=== PATIENT | male | born 1940 | race Caucasian/White ===

== ENCOUNTER 2024-07-11 13:13 | Observation (INO) | payer MEDICARE, SELFPAY ==
[2024-07-11] VITALS (22 sets, daily range): BP systolic 70–132; BP diastolic 42–68; PULSE 53–71; RESP 12–20; TEMP 36.2–36.4; O2SAT 88–100; BMI 23.3
--- NOTE | ~2024-07-11 | US_ITS ---
EXAMINATION: US renal BI DATE: 07/14/2024 08:55 INDICATION: Acute kidney injury. TECHNIQUE: Multiple ultrasound grayscale images of the kidneys were obtained. COMPARISON: None. FINDINGS: The right kidney measures 10.0 x 4.5 x 5.7 cm. The left kidney measures 11.6 x 5.1 x 5.3 cm. The kidn eys demonstrate normal parenchymal echogenicity. There is no hydronephrosis. The bladder is decompres sed by a Sharpe catheter. IMPRESSION: 1. Normal kidneys. No hydronephrosis. Reviewed, dictated and finalized at location A. OGICAL TECHNICIAN
--- NOTE | ~2024-07-11 | XR_ITS ---
CHEST RADIOGRAPH CLINICAL HISTORY: hypotension . COMPARISON: None available TECHNIQUE: Single portable view of the chest. FINDINGS Sternal wires and mediastinal clips are identified, the wires are midline and intact. The remainder of the cardiomediastinal silhouette is otherwise unremarkable. Increased interstitial markings within the right upper lobe for which an early infiltrate is suspecte d. The remainder of the lungs are clear. Visualized osseous structures and soft tissues are unremarkable. IMPRESSION: Early infiltrate within the right upper lobe suspected Otherwise, unremarkable evaluation of the chest, as detailed above. Reviewed, dictated and finalized at location A. CHARGER
--- NOTE | 2024-07-11 13:49 | ECG_ITS ---
Test Date: 2024-07-11 14:06:20 Measurements Intervals [place] Rate: 51 P: 37 NV: 171 QRS: 38 QRSD: 114 T: -1 QT: 462 QTc: 427 Interpretive Statements SINUS BRADYCARDIA possible old inferior [place] No previous ECG available for comparison Electronically Signed On 07-11-2024 14:42:46 FLIGHT STEWARD by Heather Espinoza M.D.
--- NOTE | 2024-07-11 13:50 | PC.NURSE ---
spoke with Araceli at [facility] to inquire that all bp medications were held today. states that patient didn't get any of his bp medications this morning. bp of patient on chart sent from facility was 06/29 and was 102/58 the nurse from facility stated that this has been his new normal since upping his lisinopril a couple of months ago
[2024-07-11] MEDS: LACTATED RINGERS 1,000 ML 999 ML IV CONT ×3 (13:58→13:59)
--- NOTE | 2024-07-11 14:36 | ED_ITS ---
HPI - Recheck/Abnormal Lab/Rx General Chief Complaint: Recheck/Abnormal Lab/Rx Stated Complaint: low BP Time Seen by Provider: 07/11/24 13:44 History of Present Illness HPI narrative: 84-year-old male presenting with hypotension. He resides at a nursing facility was found to have blood pressures in the 80s systolic so EMS was called. Patient denies any complaints though his family reports he has had diarrhea lately. Denies any pain or nausea. Related Data Allergies Allergy/AdvReac Type Severity Reaction Status Date / Time No Known Drug Allergies Allergy Unknown UNKNOWN Verified 07/11/24 13:56 Review of Systems 2 Review of Systems: All systems reviewed & are unremarkable except as noted in HPI and below PMFSH Past Medical History Medical History (Updated 07/11/24 @ 21:20 by Tsering Tafoya MD) Coronary artery disease Depression Vitamin D deficiency Dementia Hyperlipidemia Hypertension Surgical History Surgical History (Updated 07/11/24 @ 21:17 by Darcy Huerta PA-C) History of bilateral knee arthroplasty History of four vessel coronary artery bypass graft Family History Family History (Updated 07/11/24 @ 21:18 by Darcy Huerta PA-C) Other Family history unknown Social History Social History Social History: Healthcare power of software quality assurance engineer: Teressa Espinal, daughter. Code status: Full code. Additional living arrangements comments: Assisted living at [facility]. 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 Exam 2 Narrative: GENERAL: Elderly male sitting up in bed in no acute distress, pleasant and cooperative HEAD: Normocephalic, atraumatic. EYES: PERRLA and EOMI. ENT: grossly unremarkable NECK: Supple. CHEST: Clear to auscultation. No respiratory distress. HEART: Regular rate and rhythm ABDOMEN: Soft, nontender, nondistended EXTREMITIES: No edema. SKIN: Warm, dry, no rash. NEURO: No focal deficits. Alert and oriented x3. PSYCH: Normal mood and affect. Course Vital Signs Vital signs: Vital Signs Temperature 97.6 F 07/11/24 13:12 Pulse Rate 55 L 07/11/24 13:12 Respiratory Rate 18 07/11/24 13:12 Blood Pressure 70/42 L 07/11/24 13:12 Pulse Oximetry 96 07/11/24 13:12 Oxygen Delivery Room Air 07/11/24 13:12 Temperature 97.6 F 07/11/24 13:12 Pulse Rate 64 07/11/24 17:50 Respiratory Rate 13 07/11/24 17:50 Blood Pressure 113/68 07/11/24 17:46 Pulse Oximetry 99 07/11/24 17:46 Oxygen Delivery Room Air 07/11/24 13:12 MDM - Recheck/Abnormal Lab/Rx MDM Narrative Medical decision making narrative: 84-year-old male presenting with low blood pressure. Blood pressures on arrival are 70-80 systolic. Patient bradycardic, otherwise vitals within normal limits. blood work is concerning for SHIRLENE with a creatinine of 3.6, BUN of 106. Lactic acid is normal. Troponins undetectable. UA is not infected. IV fluids are ongoing. Patient continues to deny any complaints. He requires admission for further management which he is agreeable with. his pressures have improved following IV hydration. I spoke with the hospitalist who has accepted him for admission. Differential Diagnosis Differential diagnosis: Likely other ( Hypotension, SHIRLENE, electrolyte derangement) Medical Records Attestation: I reviewed the patient's medical records. Lab Data 07/11/24 14:52 07/11/24 16:46 Labs: Lab Results 07/11/24 07/11/24 07/11/24 Range/Units 14:52 16:46 17:10 WBC 5.2 (4.5-10.0) K/mm3 RBC 3.62 L (4.6-6.20) M/mm3 Hgb 10.9 L (14.0-18.0) g/dL Hct 33.7 L (42.0-52.0) % MCV 93.1 (80-100) fl MCH 30.1 (26-34) pg MCHC 32.3 (32-36) g/dl RDW 13.1 (11.5-14.5) % Plt Count 179 (150-375) k/mm3 MPV 10.8 H (7.4-10.4) fl Immature Gran % (Auto) 0.6 H (0-0.5) % Neut % (Auto) 57.7 (45.5-73.1) % Lymph % (Auto) 26.4 (18.3-44.2) % Lea % (Auto) 12.2 H (2.6-8.5) % Eos % (Auto) 2.3 (0-4.4) % Baso % (Auto) 0.8 (0.2-1.2) % Lymph # (Auto) 1.38 (0.9-3.2) K/mm3 Lea # (Auto) 0.6 (0.1-0.6) K/mm3 Eos # (Auto) 0.1 (0-0.3) K/mm3 Baso # (Auto) 0.0 (0.0-0.1) K/mm3 Abs Immat Gran (auto) 0.03 (0.00-0.031) K/mm3 Absolute Neuts (auto) 3.0 (1.3-6.7) K/mm3 Absolute Nucleated RBC 0.000 (0.0-0.012) K/mm3 Nucleated RBC % 0.0 (0.0-0.2) % PT 14.7 (11.1-14.7) Seconds INR 1.1 APTT 27.4 (22.3-36.8) Seconds Sodium 137 136 L (137-145) mmol/L Potassium 5.1 H 4.9 (3.4-5.0) mmol/L Chloride 115 H 116 H (98-107) mmol/L Carbon Dioxide 15 L 14 L (22-30) mmol/L Anion Gap 7 6 (4-12) mmol/L BUN 109 H 106 H (9-20) mg/dL Creatinine 3.90 H 3.60 H (0.7-1.3) mg/dL Estim Creat Clear Calc 14 16 ml/min Estimated GFR 15 L 16 L (59 - ) Glucose 128 H 116 H (65-110) mg/dL Lactic Acid 1.4 (0.7-2.0) mmol/L Calcium 8.0 L 8.0 L (8.4-10.2) mg/dL Magnesium 2.1 (1.6-2.3) mg/dL Total Bilirubin 0.5 (0.2-1.3) mg/dL AST 14 L (17-59) U/L ALT 12 (6-50) U/L Alkaline Phosphatase 78 (38-126) U/L Total Creatine Kinase 27 L (55-170) U/L Troponin I < 0.012 < 0.012 (0.000-0.034) ng/mL NT-Pro-B Natriuret Pep 303 H (19.9-100) pg/mL Total Protein 6.0 L (6.3-8.2) g/dL Albumin 3.2 L (3.5-5.1) g/dL Lipase 469 H (23-300) U/L Urine Color Yellow (Yellow) Urine Appearance Clear (Clear) Urine pH 5.0 (5.0-9.0) Ur Specific [place] 1.013 (1.001-1.035) Urine Protein Trace (Negative) mg/dL Urine Glucose (UA) Negative (Negative) mg/dL Urine Ketones Negative (Negative) mg/dL Ur Blood (Man) Negative (Negative) Urine Nitrate Negative (Negative) Urine Bilirubin Negative (Negative) Urine Urobilinogen 0.2 (<2.0) mg/dL Add Ur Microanalysis Reviewed Leukocyte Esterase Rfl Negative (Negative) CRYSTAL/UL Urine RBC 0-2 (0-2) /hpf Urine WBC 0-5 (0-3) /hpf Ur Squamous Epith Cells None seen (Few) /hpf Urine Bacteria None seen /hpf Urine Casts 6-10 Hyaline Casts Present (None) /lpf Influenza A (RT-PCR) Negative (Negative) Influenza B (RT-PCR) Negative (Negative) RSV (RT-PCR) Negative (Negative) SARS-CoV-2 RNA (RT-PCR) Negative (Negative) ABG Data ABG results: 07/11/24 16:58 VBG pH 7.204 L* VBG pCO2 36.3 L VBG pO2 < 27.0 L VBG HCO3 14.0 L O2 Delivery Device Not Reportable O2 Liters/Min Not Reportable FiO2 21 Imaging Data Radiologist's impression: ITS Impressions Chest X-Ray 07/11/24 14:40 IMPRESSION: Early infiltrate within the right upper lobe suspected Otherwise, unremarkable evaluation of the chest, as detailed above. Critical Care Time Critical Care Time Critical Care Time: Yes Total Critical Care Time: 32 Discharge Plan Discharge Clinical Impression: Hypotension, Acute kidney injury, Dementia Patient Disposition: Still a Patient Condition: Stable Patient Language: [place] Follow-up/Referrals: UNKNOWN,DOCTOR [Primary Care Provider] -
[2024-07-11 15:04] LABS: Basophils Percent Auto 0.8 % (0.2-1.2); Eosinophils Absolute Auto 0.1 K/mm3 (0-0.3); Eosinophils Percent Auto 2.3 % (0-4.4); Hematocrit 33.7 % (42.0-52.0); Hemoglobin 10.9 g/dL (14.0-18.0); Immature Granulocyte Absolute 0.03 K/mm3 (0.00-0.031); Immature Granulocyte Percent A 0.6 % (0-0.5); Lymphocytes Absolute Auto 1.38 K/mm3 (0.9-3.2); Lymphocytes Percent Auto 26.4 % (18.3-44.2); Mean Corpuscular HGB Conc 32.3 g/dl (32-36); Mean Corpuscular Hemoglobin 30.1 pg (26-34); Mean Corpuscular Volume 93.1 fl (80-100); Mean Platelet Volume 10.8 fl (7.4-10.4); Monocytes Absolute Auto 0.6 K/mm3 (0.1-0.6); Monocytes Percent Auto 12.2 % (2.6-8.5); Neutrophils Percent Auto 57.7 % (45.5-73.1); Platelet Count Result 179 k/mm3 (150-375); Red Blood Count 3.62 M/mm3 (4.6-6.20); Red Cell Distribution Width 13.1 % (11.5-14.5); White Blood Count 5.2 K/mm3 (4.5-10.0)
[2024-07-11 15:15] LABS: Alanine Aminotransferase 12 U/L (6-50); Albumin Level 3.2 g/dL (3.5-5.1); Alkaline Phosphatase 78 U/L (38-126); Anion Gap 7 mmol/L (4-12); Aspartate Amino Transferase 14 U/L (17-59); Bilirubin,Total 0.5 mg/dL (0.2-1.3); Blood Urea Nitrogen 109 mg/dL (9-20); Carbon Dioxide 15 mmol/L (22-30); Chloride 115 mmol/L (98-107); Estimated CRCL calculation 14 ml/min; Estimated Glomerular Filt Rate 15; Glucose 128 mg/dL (65-110); Lactic Acid Reflex 1.4 mmol/L (0.7-2.0); Lipase 469 U/L (23-300); Magnesium 2.1 mg/dL (1.6-2.3); Potassium 5.1 mmol/L (3.4-5.0); Sodium 137 mmol/L (137-145)
[2024-07-11 15:17] LABS: INR 1.1; Prothrombin Time 14.7 Seconds (11.1-14.7)
[2024-07-11 15:18] LABS: Partial Thromboplastin Time 27.4 Seconds (22.3-36.8)
[2024-07-11 15:26] LABS: NT Pro B Type Natriuretic Pept 303 pg/mL (19.9-100); Troponin I < 0.012 ng/mL (0.000-0.034)
[2024-07-11 15:38] LABS: Influenza A QL RT-PCR Negative (Negative); Influenza B QL RT-PCR Negative (Negative); RSV RNA, RT-PCR Negative (Negative); SARS-CoV-2 RNA PCR Negative (Negative)
--- NOTE | 2024-07-11 16:10 | P.HP_ITS ---
H&P: HPI History of Present Illness Date/Time: 07/11/24 16:10 Chief Complaint: Hypotension. Narrative: This is an 84-year-old male with dementia, coronary artery disease, hypertension, hyperlipidemia, and depression who presented to the emergency department via EMS from [facility] for evaluation of hypotension. He is not the best historian given his underlying dementia and some of the following is obtained via a review of his electronic medical record as well as information provided by his daughter; also suffers from dementia. It is my understanding that the patient's blood pressure was in the low 100s systolic this morning and lisinopril was held. Blood pressure at lunch was in the 70s to 80s systolic and he was sent to the ED.. It is my understanding that the patient and his both had a GI bug over the weekend, mainly with diarrhea. The patient also ran a temperature for a couple of days but that has since resolved. At the time of my evaluation he tells me he feels just fine and has no complaints. He denies headache, sinus congestion, sore throat, cough, nausea, vomiting, current diarrhea, and dysuria. He also denies chest pain, pleuritic pain, orthopnea, paroxysmal nocturnal dyspnea, shortness of breath, and edema. In the ED: Blood pressure was 70/42 on arrival. He has been in a sinus rhythm and is afebrile. Labs are significant for WBC count of 5.2, hemoglobin 10.9, potassium 5.1, chloride 115, carbon dioxide 15, anion gap 7, BUN 109, creatinine 3.90, glucose 128, lactic acid 1.4, troponin <0.012, proBNP 303, total protein 6.0, albumin 3.2, lipase 469. Influenza, RSV, and COVID were negative. Chest x- ray showed a suspected early infiltrate within the right upper lobe. He received 3 L crystalloid bolus with improvement his blood pressures and he is being admitted in this setting. Review of Systems Review of Systems: 12 systems were reviewed and are negativ e except for as per HPI. [facility] Past Medical History Medical History (Updated 07/11/24 @ 21:24 by Darcy Huerta PA-C) Coronary artery disease Depression Vitamin D deficiency Dementia Hyperlipidemia Hypertension Surgical History Surgical History (Updated 07/11/24 @ 21:17 by Darcy Huerta PA-C) History of bilateral knee arthroplasty History of four vessel coronary artery bypass graft Family History Family History (Updated 07/11/24 @ 21:18 by Darcy Huerta PA-C) Other Family history unknown Social History Social History (Updated 07/11/24 @ 21:19 by Darcy Huerta PA-C) Social History: Healthcare power of employee benefits attorney: Teressa Espinal, daughter. Code status: Full code. Additional living arrangements comments: Assisted living at [facility]. 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 Meds Home Medications and Allergies Allergies Allergy/AdvReac Type Severity Reaction Status Date / Time No Known Drug Allergies Allergy Unknown UNKNOWN Verified 07/11/24 13:56 Vital Signs Vital Signs - 24 hr 07/11/24 13:12 07/11/24 13:38 Temperature 97.6 F Pulse Rate 55 L 53 L Respiratory Rate 18 18 Blood Pressure 70/42 L 81/58 L Pulse Oximetry 96 100 Oxygen Delivery Room Air Exam Narrative: General: Nontoxic-appearing elderly gentleman the semi-Arenas position in bed. Weight: 77.8 kg. BMI: 23.9. HEENT: PERRL, EOMI. Sclera anicteric. Tacky mucous membranes. Neck: Supple. Full smith. Respiratory: Respirations are nonlabored and lungs are clear to auscultation. Cardiovascular: Regular rate and rhythm with S1-S2. Gastrointestinal: Abdomen is soft, nontender, and nondistended with positive bowel sounds. No guarding or rebound tenderness. Skin: Warm and dry. Normal capillary refill. Extremities: No cyanosis, clubbing, or edema. Radial and pedal pulses intact. Neurological: Alert. Cranial nerves 2-12 are grossly intact. Speech is clear. No facial asymmetry. No gross focal deficits to casual conversation. Psychiatric: Pleasant and cooperative with appropriate mood and affect. He has a good spirits. Seems to be a bit forgetful. H&P: Results Labs Labs: Short CBC 07/11/24 Range/Units 14:52 WBC 5.2 (4.5-10.0) K/mm3 Hgb 10.9 L (14.0-18.0) g/dL Hct 33.7 L (42.0-52.0) % Plt Count 179 (150-375) k/mm3 BMP 12/24/24 14:52 Sodium 137 Potassium 5.1 H Chloride 115 H Carbon Dioxide 15 L BUN 109 H Creatinine 3.90 H Glucose 128 H Calcium 8.0 L Cardiac Enzymes 07/11/24 Range/Units 14:52 Troponin I < 0.012 (0.000-0.034) ng/mL Liver Function 07/11/24 Range/Units 14:52 Total Bilirubin 0.5 (0.2-1.3) mg/dL AST 14 L (17-59) U/L ALT 12 (6-50) U/L Alkaline Phosphatase 78 (38-126) U/L Albumin 3.2 L (3.5-5.1) g/dL Imaging Chest X-Ray 07/11/24 14:40 IMPRESSION: Early infiltrate within the right upper lobe suspected Otherwise, unremarkable evaluation of the chest, as detailed above. Assessment and Plan Assessment and plan (1) Hypotension: Code(s): I95.9 - Hypotension, unspecified Status: Acute (2) Acute kidney injury: Code(s): N17.9 - Acute kidney failure, unspecified Status: Acute (3) Metabolic acidosis: Code(s): E87.20 - Acidosis, unspecified Status: Acute (4) Dementia: Code(s): F03.90 - Unspecified dementia, unspecified severity, without behavioral disturbance, psychotic disturbance, mood disturbance, and anxiety Status: Acute Plan The patient presented to the emergency department for evaluation of low blood pressure as detailed in HPI. Labs, imaging, EKG, and all reports were personally reviewed. He apparently had diarrhea for several days over the weekend which has reportedly resolved. I suspect that he is dehydrated due to volume loss which is responsible for the hypotension and presumed acute kidney injury. He and his moved to the area about a year ago and he has never been seen at this facility; will attempt to get records from his primary care provider in [place], [place]. I have yet to see a list of his medications to see whether not he is on nephrotoxic agents. Sharpe catheter was inserted in immediately drained about 500 mL of urine and we will continue to monitor strict I/O. Renal ultrasound has been ordered. Metabolic acidosis is likely related to the renal failure. We will continue with IV fluid rehydration overnight and continue to monitor renal function. His home medications will be reviewed and resumed as appropriate. Findings and treatment plan were discussed with the patient. Questions were solicited and answered to satisfaction. The patient's medical management will be taken over by the hospitalist team in a.m. Quality VTE Prophylaxis VTE prophylaxis: mechanical ordered and pharmacologic ordered Hospitalist [facility] Advance Care Plan I have confirmed that the patient's Advanced Care Plan is present, code status is documented, or surrogate decision maker is listed in patient medical record.: Yes Medication Reconciliation I have utilized all available resources to obtain, update and review the patients current medications (includes all prescriptions, OTC, herbals, cannabis, and nutritional supplements).: Yes
[2024-07-11 17:02] LABS: Anion Gap 6 mmol/L (4-12); Blood Urea Nitrogen 106 mg/dL (9-20); Carbon Dioxide 14 mmol/L (22-30); Chloride 116 mmol/L (98-107); Estimated CRCL calculation 16 ml/min; Estimated Glomerular Filt Rate 16; Glucose 116 mg/dL (65-110); Potassium 4.9 mmol/L (3.4-5.0); Sodium 136 mmol/L (137-145)
[2024-07-11 17:14] LABS: Troponin I < 0.012 ng/mL (0.000-0.034)
[2024-07-11 17:21] LABS: Fractional Inspired Oxygen 21 %; PCO2 VBG 36.3 mmHg (42.0-48.0)
[2024-07-11 17:24] LABS: PO2 VBG < 27.0 mmHg (35.0-45.0); pH VBG 7.204 (7.300-7.400)
[2024-07-11 17:35] LABS: Add Urine Microscopic? YES; Appearance Urine Clear (Clear); Bacteria Urine None Seen /hpf; Bilirubin Urine Negative (Negative); Blood Urine Negative (Negative); Color Urine Yellow (Yellow); Glucose Urine UA Negative (Negative); Hyaline Casts Urine Present /lpf; Ketones Urine Negative (Negative); Leukocyte Esterase Ur Negative LEU/UL (Negative); Need Manual Microscopic Reviewed; Nitrate Urine Negative (Negative); Protein Urine Trace mg/dL (Negative); RBC Urine 0-2 /hpf (0-2); Specific Grav Ur 1.013 (1.001-1.035); Squamous Epithelial Cell Urine None Seen /hpf (Few); Urobilinogen Urine 0.2 mg/dL (<2.0); WBC Urine 0-5 /hpf (0-3)
[2024-07-11 17:54] LABS: Creatine Kinase 27 U/L (55-170)
--- NOTE | 2024-07-11 20:28 | PC.NURSE ---
RN WAS CALLED TO THE PATIENTS ROOM BY PATIENTS ROOM NEIGHBOR. STATING THAT THE PATIENT NEEDED HELP. PATIENT WAS FOUND TO BE STANDING AT THE BOTTOM OF THE BED WITH STOOL ON THE BED, FLOOR, PATIENT, AND PATIENTS CLOTHING. PATIENT HAD PULLED OUT HIS IV, WHEN ASKING WHAT HAPPENED THE PATIENT STATED I REALLY DON'T KNOW, WAKE ME UP IN THE MORNING I'M IN A NIGHTMARE. PATIENT CLEANED UP, AND HELPED TO THE BEDSIDE COMMODE. PATIENT TRIED TO PULL VILLAR CATHETER OUT AND PULLED THE STATLOCK APART WHILE HOLDING CATHETER TUBING IN HIS HANDS.
[2024-07-11 22:29] LABS: Troponin I < 0.012 ng/mL (0.000-0.034)
--- NOTE | 2024-07-11 22:44 | ADMGEN ---
This patient, Tung Rodriguez, was admitted to [facility] Surg Room 303-01. Patient/family oriented to hospital policies and general routines including ID bracelet, bed and alarms, visiting hours, pain management, procedures, bathroom and other care routines, personal items, smoking policy, room service/diet, and visiting hours. Information on how to activate the Rapid Response Team has been discussed. Patient/Family are encouraged to report perceived risks to care and to ask questions if they do not understand what they are told or what they should do.
[2024-07-12] VITALS: PULSE 65
[2024-07-12 01:20] LABS: Toxigenic C. Diff NEGATIVE (NEGATIVE)
[2024-07-12] MEDS: LACTATED RINGERS 1,000 ML 100 ML IV CONT ×2 (02:18→16:32)
[2024-07-12] MEDS: LORazepam INJ (*CRX) 2 MG/ML VIAL 1 MG IV PUSH (02:18)
[2024-07-12 06:00] VITALS: BP 129/89
[2024-07-12 06:32] LABS: Hematocrit 34.4 % (42.0-52.0); Hemoglobin 11.3 g/dL (14.0-18.0); Mean Corpuscular HGB Conc 32.8 g/dl (32-36); Mean Corpuscular Hemoglobin 30.3 pg (26-34); Mean Corpuscular Volume 92.2 fl (80-100); Mean Platelet Volume 11.2 fl (7.4-10.4); Platelet Count Result 190 k/mm3 (150-375); Red Blood Count 3.73 M/mm3 (4.6-6.20); White Blood Count 6.9 K/mm3 (4.5-10.0)
[2024-07-12 06:49] LABS: Anion Gap 7 mmol/L (4-12); Blood Urea Nitrogen 92 mg/dL (9-20); Calcium 8.5 mg/dL (8.4-10.2); Carbon Dioxide 15 mmol/L (22-30); Chloride 118 mmol/L (98-107); Estimated CRCL calculation 18 ml/min; Estimated Glomerular Filt Rate 19; Glucose 104 mg/dL (65-110); Magnesium 2.1 mg/dL (1.6-2.3); Potassium 5.3 mmol/L (3.4-5.0); Sodium 140 mmol/L (137-145)
[2024-07-12] MEDS: levoFLOXacin 750 MG/D5W 150 ML 750 MG/150 ML BAG 100 MG IVPB (08:44)
[2024-07-12] MEDS: HEPARIN SODIUM 5,000 UNITS/ML VIAL 5000 UNITS SUB-Q ×2 (08:46→21:27)
[2024-07-12 08:47] VITALS: PULSE 63
[2024-07-12] MEDS: carvediloL 12.5 MG TABLET PO (08:47)
[2024-07-12] MEDS: VITAMIN E 1,000 UNIT CAPSULE 1000 UNIT PO (08:48)
[2024-07-12] MEDS: CHOLECALCIFEROL 1,000 UNITS TABLET 1000 UNITS PO (08:48)
[2024-07-12] MEDS: MEMANTINE 10 MG TABLET PO ×2 (08:48→21:27)
--- NOTE | 2024-07-12 11:05 | P.PNIM_ITS ---
Progress Note: A&P Assessment and Plan (1) Hypotension: Code(s): I95.9 - Hypotension, unspecified Status: Acute (2) Acute kidney injury: Code(s): N17.9 - Acute kidney failure, unspecified Status: Acute (3) Metabolic acidosis: Code(s): E87.20 - Acidosis, unspecified Status: Acute (4) Dementia: Code(s): F03.90 - Unspecified dementia, unspecified severity, without behavioral disturbance, psychotic disturbance, mood disturbance, and anxiety Status: Acute Plan Hypotension likely from Diarrhea resolved continue IVF and encourage PO intake Pneumonia CXR showed early RUP infiltrates blood culture pending patient started on Levaquin SHIRLENE, improving from dehydration and hypotension Continue IVF monitor Dementia Patient is A and Ox1 monitor DVT prophylaxis on Sq Heparin Subjective Date/time seen: 07/12/24 11:05 Interval history: Patient comfortable at bedside CXR showed pneumonia and patient started on Levaquin Review of Systems Review of Systems: 12 systems were reviewed and are negativ e except for as per HPI. Exam Narrative: General: Nontoxic-appearing elderly gentleman the semi-Arenas position in bed. Weight: 77.8 kg. BMI: 23.9. HEENT: PERRL, EOMI. Sclera anicteric. Tacky mucous membranes. Neck: Supple. Full smith. Respiratory: Respirations are nonlabored and lungs are clear to auscultation. Cardiovascular: Regular rate and rhythm with S1-S2. Gastrointestinal: Abdomen is soft, nontender, and nondistended with positive bowel sounds. No guarding or rebound tenderness. Skin: Warm and dry. Normal capillary refill. Extremities: No cyanosis, clubbing, or edema. Radial and pedal pulses intact. Neurological: Alert. Cranial nerves 2-12 are grossly intact. Speech is clear. No facial asymmetry. No gross focal deficits to casual conversation. Psychiatric: Pleasant and cooperative with appropriate mood and affect. He has a good spirits. Seems to be a bit forgetful. Objective Data Vital Signs Vital Signs: Vital Signs - 24 hr 07/11/24 13:12 07/11/24 13:38 07/11/24 14:08 Temperature 97.6 F Pulse Rate 55 L 53 L 57 L Respiratory Rate 18 18 15 Blood Pressure 70/42 L 81/58 L Pulse Oximetry 96 100 98 Oxygen Delivery Room Air 07/11/24 14:15 07/11/24 14:16 07/11/24 15:04 Temperature Pulse Rate 54 L 54 L 59 L Respiratory Rate 14 12 15 Blood Pressure 104/64 Pulse Oximetry 88 L 89 L Oxygen Delivery 07/11/24 15:15 07/11/24 15:16 07/11/24 15:30 Temperature Pulse Rate 62 59 L 61 Respiratory Rate 16 16 17 Blood Pressure 129/60 Pulse Oximetry 100 100 Oxygen Delivery 07/11/24 15:31 07/11/24 15:50 07/11/24 16:00 Temperature Pulse Rate 60 61 62 Respiratory Rate 17 15 16 Blood Pressure 128/55 L Pulse Oximetry 96 Oxygen Delivery 07/11/24 16:01 07/11/24 16:02 07/11/24 16:21 Temperature Pulse Rate 62 63 62 Respiratory Rate 17 17 18 Blood Pressure 122/65 Pulse Oximetry Oxygen Delivery 07/11/24 16:30 07/11/24 16:31 07/11/24 16:45 Temperature Pulse Rate 71 64 57 L Respiratory Rate 20 17 17 Blood Pressure 128/60 Pulse Oximetry Oxygen Delivery 07/11/24 17:23 07/11/24 17:46 07/11/24 17:50 Temperature Pulse Rate 62 64 64 Respiratory Rate 14 15 13 Blood Pressure 113/68 Pulse Oximetry 99 Oxygen Delivery 07/11/24 21:45 07/11/24 21:50 07/12/24 00:00 Temperature 97.1 F L Pulse Rate 70 65 Respiratory Rate 17 Blood Pressure 132/56 L Pulse Oximetry 97 Oxygen Delivery Room Air 07/12/24 06:00 07/12/24 08:00 07/12/24 08:47 Temperature Pulse Rate 63 Respiratory Rate Blood Pressure 129/89 Pulse Oximetry Oxygen Delivery Room Air Intake/Output Intake/Output: Intake & Output 07/09/24 07/10/24 07/11/24 07/12/24 23:59 23:59 23:59 23:59 Intake Total 3000 463.3 Output Total 1300 Balance 3000 -836.7 Meds/Results Medications: Active Medications Generic Name Dose Route Start Last Admin Trade Name Freq PRN Reason Stop Dose Admin Acetaminophen 650 mg 07/11/24 21:26 Acetaminophen 325 Mg Tablet PO Q6H PRN Mild Pain (1-3) or Fever Carvedilol 12.5 mg 07/12/24 09:00 07/12/24 08:47 Carvedilol 12.5 Mg Tablet PO 12.5 mg DAILY KENNA Administration Carvedilol 25 mg 07/12/24 21:00 Carvedilol 25 Mg Tablet PO HS KENNA Donepezil HCl 10 mg 07/12/24 21:00 Donepezil Hcl 10 Mg Tablet PO HS KENNA Fluoxetine HCl 20 mg 07/12/24 21:00 Fluoxetine Hcl 20 Mg Capsule PO HS KENNA Heparin Sodium (Porcine) 5,000 units 07/12/24 09:00 07/12/24 08:46 Heparin Sodium 5,000 Units/Ml Vial SUB-Q 5,000 units Q12HR KENNA Administration Lactated Ringer's 1,000 mls @ 100 mls/hr 07/11/24 21:30 07/12/24 10:15 Lr - Lactated Ringers Iv IV CONT 100 mls/hr .Q10H KENNA Infusion Levofloxacin/Dextrose 750 mg in 150 mls @ 100 mls/hr 07/14/24 09:00 Levaquin 500 Mg/D5w 100 Ml IVPB Q48HR KENNA Memantine 10 mg 07/12/24 09:00 07/12/24 08:48 Memantine 10 Mg Tablet PO 10 mg Q12HR KENNA Administration Simvastatin 40 mg 07/12/24 21:00 Simvastatin 20 Mg Tablet PO HS KENNA Vitamin D 1,000 units 07/12/24 09:00 07/12/24 08:48 Cholecalciferol 1,000 Units Tablet PO 1,000 units DAILY KENNA Administration Vitamin E 1,000 unit 07/12/24 09:00 07/12/24 08:48 Vitamin E 1,000 Unit Capsule PO 1,000 unit QAM KENNA Administration Radiology Results: ITS Impressions Chest X-Ray 07/11/24 14:40 IMPRESSION: Early infiltrate within the right upper lobe suspected Otherwise, unremarkable evaluation of the chest, as detailed above. Labs Labs: Laboratory Results - last 24 hr 07/11/24 07/11/24 07/11/24 14:52 16:46 16:58 WBC 5.2 RBC 3.62 L Hgb 10.9 L Hct 33.7 L MCV 93.1 MCH 30.1 MCHC 32.3 RDW 13.1 Plt Count 179 MPV 10.8 H Immature Gran % (Auto) 0.6 H Neut % (Auto) 57.7 Lymph % (Auto) 26.4 [place] % (Auto) 12.2 H Eos % (Auto) 2.3 Baso % (Auto) 0.8 Lymph # (Auto) 1.38 [place] # (Auto) 0.6 Eos # (Auto) 0.1 Baso # (Auto) 0.0 Abs Immat Gran (auto) 0.03 Absolute Neuts (auto) 3.0 Absolute Nucleated RBC 0.000 Nucleated RBC % 0.0 PT 14.7 INR 1.1 APTT 27.4 VBG pH 7.204 L* VBG pCO2 36.3 L VBG pO2 < 27.0 L VBG HCO3 14.0 L O2 Delivery Device Not Reportable O2 Liters/Min Not Reportable FiO2 21 Sodium 137 136 L Potassium 5.1 H 4.9 Chloride 115 H 116 H Carbon Dioxide 15 L 14 L Anion Gap 7 6 BUN 109 H 106 H Creatinine 3.90 H 3.60 H Estim Creat Clear Calc 14 16 Estimated GFR 15 L 16 L Glucose 128 H 116 H Lactic Acid 1.4 Calcium 8.0 L 8.0 L Magnesium 2.1 Total Bilirubin 0.5 AST 14 L ALT 12 Alkaline Phosphatase 78 Total Creatine Kinase 27 L Troponin I < 0.012 < 0.012 NT-Pro-B Natriuret Pep 303 H Total Protein 6.0 L Albumin 3.2 L Lipase 469 H Urine Color Urine Appearance Urine pH Ur Specific [place] Urine Protein Urine Glucose (UA) Urine Ketones Ur Blood (Man) Urine Nitrate Urine Bilirubin Urine Urobilinogen Add Ur Microanalysis Leukocyte Esterase Rfl Urine RBC Urine WBC Ur Squamous Epith Cells Urine Bacteria Urine Casts Hyaline Casts C. difficile (PCR) Influenza A (RT-PCR) Negative Influenza B (RT-PCR) Negative RSV (RT-PCR) Negative SARS-CoV-2 RNA (RT-PCR) Negative 07/11/24 07/11/24 07/12/24 17:10 21:55 00:24 WBC RBC Hgb Hct MCV MCH MCHC RDW Plt Count MPV Immature Gran % (Auto) Neut % (Auto) Lymph % (Auto) [place] % (Auto) Eos % (Auto) Baso % (Auto) Lymph # (Auto) [place] # (Auto) Eos # (Auto) Baso # (Auto) Abs Immat Gran (auto) Absolute Neuts (auto) Absolute Nucleated RBC Nucleated RBC % PT INR APTT VBG pH VBG pCO2 VBG pO2 VBG HCO3 O2 Delivery Device O2 Liters/Min FiO2 Sodium Potassium Chloride Carbon Dioxide Anion Gap BUN Creatinine Estim Creat Clear Calc Estimated GFR Glucose Lactic Acid Calcium Magnesium Total Bilirubin AST ALT Alkaline Phosphatase Total Creatine Kinase Troponin I < 0.012 NT-Pro-B Natriuret Pep Total Protein Albumin Lipase Urine Color Yellow Urine Appearance Clear Urine pH 5.0 Ur Specific [place] 1.013 Urine Protein Trace Urine Glucose (UA) Negative Urine Ketones Negative Ur Blood (Man) Negative Urine Nitrate Negative Urine Bilirubin Negative Urine Urobilinogen 0.2 Add Ur Microanalysis Reviewed Leukocyte Esterase Rfl Negative Urine RBC 0-2 Urine WBC 0-5 Ur Squamous Epith Cells None seen Urine Bacteria None seen Urine Casts 6-10 Hyaline Casts Present C. difficile (PCR) Negative Influenza A (RT-PCR) Influenza B (RT-PCR) RSV (RT-PCR) SARS-CoV-2 RNA (RT-PCR) 07/12/24 06:08 WBC 6.9 RBC 3.73 L Hgb 11.3 L Hct 34.4 L MCV 92.2 MCH 30.3 MCHC 32.8 RDW 13.0 Plt Count 190 MPV 11.2 H Immature Gran % (Auto) Neut % (Auto) Lymph % (Auto) [place] % (Auto) Eos % (Auto) Baso % (Auto) Lymph # (Auto) [place] # (Auto) Eos # (Auto) Baso # (Auto) Abs Immat Gran (auto) Absolute Neuts (auto) Absolute Nucleated RBC Nucleated RBC % PT INR APTT VBG pH VBG pCO2 VBG pO2 VBG HCO3 O2 Delivery Device O2 Liters/Min FiO2 Sodium 140 Potassium 5.3 H Chloride 118 H Carbon Dioxide 15 L Anion Gap 7 BUN 92 H D Creatinine 3.20 H Estim Creat Clear Calc 18 Estimated GFR 19 L Glucose 104 Lactic Acid Calcium 8.5 Magnesium 2.1 Total Bilirubin AST ALT Alkaline Phosphatase Total Creatine Kinase Troponin I NT-Pro-B Natriuret Pep Total Protein Albumin Lipase Urine Color Urine Appearance Urine pH Ur Specific [place] Urine Protein Urine Glucose (UA) Urine Ketones Ur Blood (Man) Urine Nitrate Urine Bilirubin Urine Urobilinogen Add Ur Microanalysis Leukocyte Esterase Rfl Urine RBC Urine WBC Ur Squamous Epith Cells Urine Bacteria Urine Casts Hyaline Casts C. difficile (PCR) Influenza A (RT-PCR) Influenza B (RT-PCR) RSV (RT-PCR) SARS-CoV-2 RNA (RT-PCR) Quality VTE Prophylaxis VTE prophylaxis: mechanical ordered and pharmacologic ordered
[2024-07-12 14:00] VITALS: BP 121/56; PULSE 75; RESP 18; TEMP 36.3; O2SAT 98
[2024-07-12 20:25] VITALS: BP 139/59; PULSE 75; RESP 20; TEMP 36.4; O2SAT 98
[2024-07-12] MEDS: DONEPEZIL HCL 10 MG TABLET PO (21:27)
[2024-07-12] MEDS: carvediloL 25 MG TABLET PO (21:27)
[2024-07-12] MEDS: FLUoxetine HCL 20 MG CAPSULE PO (21:28)
[2024-07-12] MEDS: SIMVASTATIN 20 MG TABLET 40 MG PO (21:29)
[2024-07-13 04:56] VITALS: BP 97/47; PULSE 70; RESP 20; TEMP 36.2; O2SAT 96
[2024-07-13 09:06] VITALS: PULSE 70
[2024-07-13] MEDS: HEPARIN SODIUM 5,000 UNITS/ML VIAL 5000 UNITS SUB-Q ×2 (09:06→20:51)
[2024-07-13] MEDS: VITAMIN E 1,000 UNIT CAPSULE 1000 UNIT PO (09:06)
[2024-07-13] MEDS: MEMANTINE 10 MG TABLET PO ×2 (09:06→20:51)
[2024-07-13] MEDS: CHOLECALCIFEROL 1,000 UNITS TABLET 1000 UNITS PO (09:06)
[2024-07-13] MEDS: carvediloL 12.5 MG TABLET PO (09:06)
[2024-07-13 10:20] LABS: Basophils Percent Auto 0.5 % (0.2-1.2); Eosinophils Absolute Auto 0.1 K/mm3 (0-0.3); Eosinophils Percent Auto 1.4 % (0-4.4); Hematocrit 36.2 % (42.0-52.0); Hemoglobin 11.9 g/dL (14.0-18.0); Immature Granulocyte Absolute 0.02 K/mm3 (0.00-0.031); Immature Granulocyte Percent A 0.3 % (0-0.5); Lymphocytes Percent Auto 17.8 % (18.3-44.2); Mean Corpuscular HGB Conc 32.9 g/dl (32-36); Mean Corpuscular Hemoglobin 29.9 pg (26-34); Mean Platelet Volume 10.6 fl (7.4-10.4); Monocytes Absolute Auto 0.9 K/mm3 (0.1-0.6); Monocytes Percent Auto 11.8 % (2.6-8.5); Neutrophils Absolute Auto 5.4 K/mm3 (1.3-6.7); Neutrophils Percent Auto 68.2 % (45.5-73.1); Platelet Count Result 214 k/mm3 (150-375); Red Blood Count 3.98 M/mm3 (4.6-6.20); Red Cell Distribution Width 13.2 % (11.5-14.5); White Blood Count 7.9 K/mm3 (4.5-10.0)
[2024-07-13 10:32] LABS: Alanine Aminotransferase 13 U/L (6-50); Albumin Level 3.8 g/dL (3.5-5.1); Alkaline Phosphatase 98 U/L (38-126); Anion Gap 6 mmol/L (4-12); Aspartate Amino Transferase 18 U/L (17-59); Bilirubin,Total 0.7 mg/dL (0.2-1.3); Blood Urea Nitrogen 56 mg/dL (9-20); Calcium 8.9 mg/dL (8.4-10.2); Carbon Dioxide 17 mmol/L (22-30); Chloride 116 mmol/L (98-107); Estimated CRCL calculation 28 ml/min; Estimated Glomerular Filt Rate 34; Glucose 181 mg/dL (65-110); Potassium 4.8 mmol/L (3.4-5.0); Sodium 139 mmol/L (137-145)
[2024-07-13 14:00] VITALS: BP 108/63; PULSE 71; RESP 18; TEMP 36.6; O2SAT 99
--- NOTE | 2024-07-13 14:10 | PM.IMPN ---
Progress Note: A&P Assessment and Plan (1) Hypotension: Code(s): I95.9 - Hypotension, unspecified Status: Acute (2) Acute kidney injury: Code(s): N17.9 - Acute kidney failure, unspecified Status: Acute (3) Metabolic acidosis: Code(s): E87.20 - Acidosis, unspecified Status: Acute (4) Dementia: Code(s): F03.90 - Unspecified dementia, unspecified severity, without behavioral disturbance, psychotic disturbance, mood disturbance, and anxiety Status: Acute Plan Hypotension likely from Diarrhea resolved continue IVF and encourage PO intake Pneumonia CXR showed early RUP infiltrates blood culture pending Day 2 Levaquin SHIRLENE, improving from dehydration and hypotension Continue IVF Cr 1.9 today from 3.9 peak monitor Dementia Patient is A and Ox1 monitor DVT prophylaxis on Sq Heparin Subjective Date/time seen: 07/13/24 14:10 Interval history: Patient comfortable at bedside Cr markedly improved, 1.9 this morning Review of Systems Review of Systems: 12 systems were reviewed and are negative except for as per HPI. Exam Narrative: General: Nontoxic-appearing elderly gentleman the semi-[place]ren[place] position in bed. Weight: 77.8 kg. BMI: 23.9. HEENT: PERRL, EOMI. Sclera anicteric. Tacky mucous membranes. Neck: Supple. Full smith. Respiratory: Respirations are nonlabored and lungs are clear to auscultation. Cardiovascular: Regular rate and rhythm with S1-S2. Gastrointestinal: Abdomen is soft, nontender, and nondistended with positive bowel sounds. No guarding or rebound tenderness. Skin: Warm and dry. Normal capillary refill. Extremities: No cyanosis, clubbing, or edema. Radial and pedal pulses intact. Neurological: Alert. Cranial nerves 2-12 are grossly intact. Speech is clear. No facial asymmetry. No gross focal deficits to casual conversation. Psychiatric: Pleasant and cooperative with appropriate mood and affect. He has a good spirits. Seems to be a bit forgetful. Objective Data Vital Signs Vital Signs: Vital Signs - 24 hr 07/12/24 20:00 07/12/24 20:25 07/13/24 04:56 Temperature 97.5 F L 97.2 F L Pulse Rate 75 70 Respiratory Rate 20 20 Blood Pressure 139/59 L 97/47 L Pulse Oximetry 98 96 Oxygen Delivery Room Air 07/13/24 08:00 07/13/24 09:06 Temperature Pulse Rate 70 Respiratory Rate Blood Pressure Pulse Oximetry Oxygen Delivery Room Air Intake/Output Intake/Output: Intake & Output 07/10/24 07/11/24 07/12/24 07/13/24 23:59 23:59 23:59 23:59 Intake Total 3000 1091.6 440 Output Total 2800 950 Balance 3000 -1708.4 -510 Meds/Results Medications: Active Medications Generic Name Dose Route Start Last Admin Trade Name Freq PRN Reason Stop Dose Admin Acetaminophen 650 mg 07/11/24 21:26 Acetaminophen 325 Mg Tablet PO Q6H PRN Mild Pain (1-3) or Fever Carvedilol 12.5 mg 07/12/24 09:00 07/13/24 09:06 Carvedilol 12.5 Mg Tablet PO 12.5 mg DAILY KENNA Administration Carvedilol 25 mg 07/12/24 21:00 07/12/24 21:27 Carvedilol 25 Mg Tablet PO 25 mg HS KENNA Administration Donepezil HCl 10 mg 07/12/24 21:00 07/12/24 21:27 Donepezil Hcl 10 Mg Tablet PO 10 mg HS KENNA Administration Fluoxetine HCl 20 mg 07/12/24 21:00 07/12/24 21:28 Fluoxetine Hcl 20 Mg Capsule PO 20 mg HS KENNA Administration Heparin Sodium (Porcine) 5,000 units 07/12/24 09:00 07/13/24 09:06 Heparin Sodium 5,000 Units/Ml Vial SUB-Q 5,000 units Q12HR KENNA Administration Lactated Ringer's 1,000 mls @ 100 mls/hr 07/11/24 21:30 07/12/24 16:32 Lr - Lactated Ringers Iv IV CONT 100 mls/hr .Q10H KENNA Administration Levofloxacin/Dextrose 750 mg in 150 mls @ 100 mls/hr 07/14/24 09:00 Levaquin 500 Mg/D5w 100 Ml IVPB Q48HR KENNA Memantine 10 mg 07/12/24 09:00 07/13/24 09:06 Memantine 10 Mg Tablet PO 10 mg Q12HR KENNA Administration Simvastatin 40 mg 07/12/24 21:00 07/12/24 21:29 Simvastatin 20 Mg Tablet PO 40 mg HS KENNA Administration Vitamin D 1,000 units 07/12/24 09:00 07/13/24 09:06 Cholecalciferol 1,000 Units Tablet PO 1,000 units DAILY [facility] Administration Vitamin E 1,000 unit 07/12/24 09:00 07/13/24 09:06 Vitamin E 1,000 Unit Capsule PO 1,000 unit QAM [facility] Administration Radiology Results: ITS Impressions Chest X-Ray 07/11/24 14:40 IMPRESSION: Early infiltrate within the right upper lobe suspected Otherwise, unremarkable evaluation of the chest, as detailed above. Labs Labs: Laboratory Results - last 24 hr 07/13/24 10:15 WBC 7.9 RBC 3.98 L Hgb 11.9 L Hct 36.2 L MCV 91.0 MCH 29.9 MCHC 32.9 RDW 13.2 Plt Count 214 MPV 10.6 H Immature Gran % (Auto) 0.3 Neut % (Auto) 68.2 Lymph % (Auto) 17.8 L [place] % (Auto) 11.8 H Eos % (Auto) 1.4 Baso % (Auto) 0.5 Lymph # (Auto) 1.40 [place] # (Auto) 0.9 H Eos # (Auto) 0.1 Baso # (Auto) 0.0 Abs Immat Gran (auto) 0.02 Absolute Neuts (auto) 5.4 Absolute Nucleated RBC 0.000 Nucleated RBC % 0.0 Sodium 139 Potassium 4.8 Chloride 116 H Carbon Dioxide 17 L Anion Gap 6 BUN 56 H D Creatinine 1.90 H Estim Creat Clear Calc 28 Estimated GFR 34 L Glucose 181 H Calcium 8.9 Total Bilirubin 0.7 AST 18 ALT 13 Alkaline Phosphatase 98 Total Protein 7.0 Albumin 3.8 Quality VTE Prophylaxis VTE prophylaxis: mechanical ordered and pharmacologic ordered
[2024-07-13 20:45] VITALS: BP 148/67; PULSE 66; RESP 16; TEMP 36.8; O2SAT 97
[2024-07-13] MEDS: FLUoxetine HCL 20 MG CAPSULE PO (20:51)
[2024-07-13] MEDS: DONEPEZIL HCL 10 MG TABLET PO (20:51)
[2024-07-13] MEDS: carvediloL 25 MG TABLET PO (20:51)
[2024-07-13] MEDS: SIMVASTATIN 20 MG TABLET 40 MG PO (20:51)
[2024-07-14] MEDS: LACTATED RINGERS 1,000 ML 100 ML IV CONT ×2 (03:10→09:39)
[2024-07-14 04:55] VITALS: BP 116/64; PULSE 59; RESP 20; TEMP 36.8; O2SAT 96
[2024-07-14 07:52] LABS: Basophils Absolute Auto 0.1 K/mm3 (0.0-0.1); Basophils Percent Auto 0.8 % (0.2-1.2); Eosinophils Absolute Auto 0.2 K/mm3 (0-0.3); Eosinophils Percent Auto 2.3 % (0-4.4); Hematocrit 32.7 % (42.0-52.0); Hemoglobin 10.7 g/dL (14.0-18.0); Immature Granulocyte Absolute 0.03 K/mm3 (0.00-0.031); Immature Granulocyte Percent A 0.5 % (0-0.5); Lymphocytes Absolute Auto 1.67 K/mm3 (0.9-3.2); Lymphocytes Percent Auto 25.7 % (18.3-44.2); Mean Corpuscular HGB Conc 32.7 g/dl (32-36); Mean Corpuscular Hemoglobin 29.9 pg (26-34); Mean Corpuscular Volume 91.3 fl (80-100); Mean Platelet Volume 10.9 fl (7.4-10.4); Monocytes Absolute Auto 0.7 K/mm3 (0.1-0.6); Monocytes Percent Auto 11.2 % (2.6-8.5); Neutrophils Absolute Auto 3.9 K/mm3 (1.3-6.7); Neutrophils Percent Auto 59.5 % (45.5-73.1); Platelet Count Result 205 k/mm3 (150-375); Red Blood Count 3.58 M/mm3 (4.6-6.20); Red Cell Distribution Width 13.2 % (11.5-14.5); White Blood Count 6.5 K/mm3 (4.5-10.0)
[2024-07-14 08:11] LABS: Alanine Aminotransferase 11 U/L (6-50); Albumin Level 3.1 g/dL (3.5-5.1); Alkaline Phosphatase 88 U/L (38-126); Anion Gap 2 mmol/L (4-12); Aspartate Amino Transferase 23 U/L (17-59); Bilirubin,Total 0.5 mg/dL (0.2-1.3); Blood Urea Nitrogen 39 mg/dL (9-20); Calcium 8.7 mg/dL (8.4-10.2); Carbon Dioxide 19 mmol/L (22-30); Chloride 119 mmol/L (98-107); Estimated CRCL calculation 34 ml/min; Estimated Glomerular Filt Rate 42; Glucose 110 mg/dL (65-110); Magnesium 1.8 mg/dL (1.6-2.3); Potassium 4.5 mmol/L (3.4-5.0); Sodium 140 mmol/L (137-145)
[2024-07-14 09:36] VITALS: PULSE 72
[2024-07-14] MEDS: VITAMIN E 1,000 UNIT CAPSULE 1000 UNIT PO (09:36)
[2024-07-14] MEDS: HEPARIN SODIUM 5,000 UNITS/ML VIAL 5000 UNITS SUB-Q (09:36)
[2024-07-14] MEDS: CHOLECALCIFEROL 1,000 UNITS TABLET 1000 UNITS PO (09:36)
[2024-07-14] MEDS: levoFLOXacin 750 MG/D5W 150 ML 750 MG/150 ML BAG 100 MG IVPB (09:36)
[2024-07-14] MEDS: carvediloL 12.5 MG TABLET PO (09:36)
[2024-07-14] MEDS: MEMANTINE 10 MG TABLET PO (09:39)
--- NOTE | 2024-07-14 11:35 | P.DS_ITS ---
DS: Admitting Diagnosis Discharge Date 07/14/24 Admitting Diagnosis SHIRLENE DS: Discharge Diagnosis Discharge Diagnosis (1) Acute kidney injury: Code(s): N17.9 - Acute kidney failure, unspecified Status: Acute DS: Summary Hospital Course Hospital Course: This is an 84-year-old male with dementia, coronary artery disease, hypertension, hyperlipidemia, and depression who presented to the emergency department via EMS from [facility] for evaluation of hypotension. He is not the best historian given his underlying dementia and some of the following is obtained via a review of his electronic medical record as well as information provided by his daughter; also suffers from dementia. It is my understanding that the patient's blood pressure was in the low 100s systolic this morning and lisinopril was held. Blood pressure at lunch was in the 70s to 80s systolic and he was sent to the ED.. It is my understanding that the patient and his both had a GI bug over the weekend, mainly with diarrhea. The patient also ran a temperature for a couple of days but that has since resolved. At the time of my evaluation he tells me he feels just fine and has no complaints. He denies headache, sinus congestion, sore throat, cough, nausea, vomiting, current diarrhea, and dysuria. He also denies chest pain, pleuritic pain, orthopnea, paroxysmal nocturnal dyspnea, shortness of breath, and edema. In the ED: Blood pressure was 70/42 on arrival. He has been in a sinus rhythm and is afebrile. Labs are significant for WBC count of 5.2, hemoglobin 10.9, potassium 5.1, chloride 115, carbon dioxide 15, anion gap 7, BUN 109, creatinine 3.90, glucose 128, lactic acid 1.4, troponin <0.012, proBNP 303, total protein 6.0, albumin 3.2, lipase 469. Influenza, RSV, and COVID were negative. Chest x- ray showed a suspected early infiltrate within the right upper lobe. He received 3 L crystalloid bolus with improvement his blood pressures and he is being admitted in this setting. Patient was placed on IVF and creatinine improved from 3.9 to 1.6. Patient had diarrhea at home, resolved and no diarrhea while admitted. Also managed for pneumonia treated with Levaquin. Discharged on 4 more days of Levaquin. PT/OT evaluated. Patient discharged to back to Assisted living today. F/u with PCP in 3-5 days Time Spent with Patient Time attestation: Total time spent providing and/or coordinating discharge services: DS: Data Data Completed and Pending Labs on day of discharge: Labs from last 24 hours 07/14/24 07:14 WBC 6.5 RBC 3.58 L Hgb 10.7 L Hct 32.7 L MCV 91.3 MCH 29.9 MCHC 32.7 RDW 13.2 Plt Count 205 MPV 10.9 H Immature Gran % (Auto) 0.5 Neut % (Auto) 59.5 Lymph % (Auto) 25.7 [place] % (Auto) 11.2 H Eos % (Auto) 2.3 Baso % (Auto) 0.8 Lymph # (Auto) 1.67 [place] # (Auto) 0.7 H Eos # (Auto) 0.2 Baso # (Auto) 0.1 Abs Immat Gran (auto) 0.03 Absolute Neuts (auto) 3.9 Absolute Nucleated RBC 0.000 Nucleated RBC % 0.0 Sodium 140 Potassium 4.5 Chloride 119 H Carbon Dioxide 19 L Anion Gap 2 L BUN 39 H D Creatinine 1.60 H Estim Creat Clear Calc 34 Estimated GFR 42 L Glucose 110 Calcium 8.7 Magnesium 1.8 Total Bilirubin 0.5 AST 23 ALT 11 Alkaline Phosphatase 88 Total Protein 6.0 L Albumin 3.1 L Preliminary micro results at discharge 07/12/24 09:01 Blood Culture - Preliminary Blood 07/12/24 09:03 Blood Culture - Preliminary Blood 07/11/24 14:52 Blood Culture - Preliminary Blood 07/11/24 14:52 Blood Culture - Preliminary Blood Discharge Plan Discharge Attending physician on discharge: Nena Garcia Discharging Clinician: Nena Garcia Anticipated Discharge Date/Time: 07/14/24 11:23 Patient Disposition: [facility] Long-Term/Asst Living Activity: as tolerated Diet: as tolerated Patient Instructions: Antibiotic Form Patient Language: Hebrew Stand Alone Forms: General Discharge Information Discharge Medications: New levofloxacin 750 mg tablet 750 mg PO .q48 4 Days Qty: 2 0RF Continued donepezil [Aricept] 10 mg tablet 10 mg PO HS fluoxetine 20 mg tablet 20 mg PO HS lisinopril 20 mg tablet 20 mg PO DAILY carvedilol 12.5 mg tablet 12.5 mg PO DAILY Rx Instructions: must administer with a meal/food cholecalciferol (vitamin D3) 25 mcg (1,000 unit) tablet 25 mcg PO DAILY simvastatin 40 mg tablet 40 mg PO HS memantine 10 mg tablet 10 mg PO BID carvedilol 25 mg tablet 25 mg PO HS Rx Instructions: must administer with a meal/food vitamin E 670 mg (1,000 unit) capsule 670 mg PO DAILY Date of admission: 07/11/24 18:01 Primary Care Provider: PHYSICIAN,[employer] DEVELOPER Admitting Provider: Nena Garcia Attending physician on admission: Nena Garcia Condition: Stable
[2024-07-14 13:18] LABS: SARS-CoV-2 RNA PCR Negative (Negative)
[2024-07-14 14:00] VITALS: BP 110/44; PULSE 80; RESP 18; TEMP 36.4; O2SAT 99
--- NOTE | 2024-07-14 17:38 | PC.NURSE ---
RN gave report to Keisha Kemp at [place] ([facility]) and also sent the pt abx [facility].
== END 2024-07-14 17:55 ==
LOC: ANHED 21:20 → ANH3MEDSUR 21:25
PROVIDERS: Internal Medicine; Physician Assistant; Admitting Provider Internal Medicine; Emergency Provider Emergency Medicine; Visit Provider Internal Medicine
DX: N17.9 Acute kidney failure, unspecified (principal); I95.9 Hypotension, unspecified; E86.0 Dehydration; J18.9 Pneumonia, unspecified organism; F03.90 Unspecified dementia, unspecified severity, without behavioral disturbance, psychotic disturbance, mood disturbance, and anxiety; E87.20 Acidosis, unspecified; F32.A Depression, unspecified; I25.10 Atherosclerotic heart disease of native coronary artery without angina pectoris; I10 Essential (primary) hypertension; E78.5 Hyperlipidemia, unspecified; Z20.822 Contact with and (suspected) exposure to COVID-19; Z95.1 Presence of aortocoronary bypass graft; Z79.899 Other long term (current) drug therapy
CPT/HCPCS: 36415; 71045; 76775; 80048; 80053; 81001; 82550; 82803; 83605; 83690; 83735; 83880; 84484; 85025; 85027; 85610; 85730; 87040; 87493; 87635; 87637; 93005; 96361; 96365; 96366; 96375; 97161; 97165; 99285; A9270; G0378; J1644; J1956; J2060; J7120

== ENCOUNTER 2024-07-24 18:10 | Inpatient (IN) | payer MEDICARE, SELFPAY ==
--- NOTE | ~2024-07-24 | XR_ITS ---
CHEST RADIOGRAPH CLINICAL HISTORY: syncope . COMPARISON: 07/11/2024 TECHNIQUE: Single portable view of the chest. FINDINGS Sternal wires and mediastinal clips are identified, the wires are midline and intact. The remainder of the cardiomediastinal silhouette is otherwise unremarkable. The lungs are clear. Visualized osseous structures and soft tissues are unremarkable. IMPRESSION: No focal infiltrate or effusion. Reviewed, dictated and finalized at location A. FIC SIGNAL TECHNICIAN
[2024-07-24 18:11] VITALS: TEMP 36.9
--- NOTE | 2024-07-24 18:15 | ECG_ITS ---
Test Date: 2024-07-24 18:19:36 Measurements Intervals Gays Rate: 52 P: 45 LA: 183 QRS: 51 QRSD: 107 T: 12 QT: 480 QTc: 447 Interpretive Statements SINUS BRADYCARDIA POSSIBLE OLD INFERIOR INFARCT Compared to ECG 07/11/2024 14:06:20 NO SIGNIFICANT CHANGES Electronically Signed On 07-26-2024 17:14:00 AUTOMATION TENDER by Chuck Wood M.D.
[2024-07-24 18:16] VITALS: BP 88/59; PULSE 56; RESP 18; TEMP 36.9; O2SAT 95
--- NOTE | 2024-07-24 18:32 | ED.SYNCOPE ---
HPI - Syncope General Chief Complaint: Syncope <Dave Huber PA-C - Last Filed: 07/25/24 00:00> Stated Complaint: syncope @ dinner <Dave Huber PA-C - Last Filed: 07/25/24 00:00> Time Seen by Provider: 07/24/24 18:20 <Dave Huber PA-C - Last Filed: 07/25/24 00:00> Source: patient <DORI Cantu Last Filed: 07/25/24 00:00> Mode of arrival: ambulatory <Dave Huber PA-C - Last Filed: 07/25/24 00:00> Limitations: no limitations <Dave Huber PA-C - Last Filed: 07/25/24 00:00> History of Present Illness HPI narrative: This is an 84-year-old male who [facility] the ED [facility] for chief complaint of syncopal episode that happened this evening at dinner. It was reported by EMS that patient ?slumped over? at the dinner table. Patient is unsure of what happened. He is currently A&O x2, but this is his mental status baseline with Alzheimer dementia. Daughter is bedside and states that he is at his mental status baseline right now. She states that he was admitted to the hospital last month for dehydration. Patient has no complaints at this time. States that he is feeling okay. <Dave Huber PA-C - Last Filed: 07/25/24 00:00> Related Data Home Medications: Home Medications ?Medication ?Instructions ?Recorded ?Confirmed ?Last Taken ?Type carvedilol 12.5 mg tablet 12.5 mg PO DAILY 07/11/24 07/24/24 Unknown History carvedilol 25 mg tablet 25 mg PO QPM 07/11/24 07/24/24 Unknown History cholecalciferol (vitamin D3) 25 25 mcg PO DAILY 07/11/24 07/24/24 Unknown History mcg (1,000 unit) tablet donepezil 10 mg tablet (Aricept) 10 mg PO HS 07/11/24 07/24/24 Unknown History fluoxetine 20 mg tablet 20 mg PO HS 07/11/24 07/24/24 Unknown History lisinopril 20 mg tablet 20 mg PO DAILY 07/11/24 07/24/24 Unknown History memantine 10 mg tablet 10 mg PO BID 07/11/24 07/24/24 Unknown History simvastatin 40 mg tablet 40 mg PO HS 07/11/24 07/24/24 Unknown History vitamin E 670 mg (1,000 unit) 670 mg PO DAILY 07/11/24 07/24/24 Unknown History capsule <Dave Huber PA-C - Last Filed: 07/25/24 00:00> Allergies/Adverse Reactions: Allergies Allergy/AdvReac Type Severity Reaction Status Date / Time mold Allergy Unknown Verified 07/12/24 00:07 Penicillins Allergy Anaphylaxis Verified 07/12/24 00:07 pollen extracts Allergy Unknown Verified 07/12/24 00:07 Sulfa (Sulfonamide Allergy Unknown Verified 07/12/24 00:07 Antibiotics) <Dave Huber PA-C - Last Filed: 07/25/24 00:00> Review of Systems Review of Systems: All systems as dictated in HPI <Dave Huber PA-C - Last Filed: 07/25/24 00:00> [facility] Past Medical History Medical History: Medical History (Updated 07/24/24 @ 19:26 by Dave Huber PA-C) Coronary artery disease Depression Vitamin D deficiency Dementia Hyperlipidemia Hypertension <Dave Huber PA-C - Last Filed: 07/25/24 00:00> Surgical History Surgical History: Surgical History (Updated 07/11/24 @ 21:17 by Darcy Huerta PA-C) History of bilateral knee arthroplasty History of four vessel coronary artery bypass graft <Dave Huber PA-C - Last Filed: 07/25/24 00:00> Family History Family History: Family History Other Family history unknown <Dave Huber PA-C - Last Filed: 07/25/24 00:00> Social History Social History: Social History (Updated 07/11/24 @ 21:19 by Darcy Huerta PA-C) Social History: Healthcare power of workers compensation defense attorney: Teressa Espinal, daughter. Code status: Full code. Smoking status: Unknown if ever smoked Alcohol intake: unknown Substance use: unknown Do You Feel Safe in your Home?: Yes Lack of Transportation: No Lack of Food: Never True Current Housing: I Have Housing Concerned About Future Housing: No Difficulty Paying Gas/Electric Bills: No Difficulty Paying for Meds: No Currently Unemployed: No Education: High School Diploma/GED Difficulty w/ Childcare or Family Care: No Additional living arrangements comments: Assisted living at [facility]. 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 Spiritual care concerns: No <Dave Huber PA-C - Last Filed: 07/25/24 00:00> Exam Narrative: GENERAL: Appears elderly and frail. Appears relatively pale HEAD: Normocephalic, atraumatic. EYES: PERRLA and EOMI. ENT: Nares clear, no rhinorrhea or epistaxis. Mucous membranes moist. Oropharynx without tonsillar hypertrophy exudate or other lesions. NECK: Supple. No adenopathy or masses. CHEST: No respiratory distress. Clear to auscultation. No wheezes rales or rhonchi HEART: Regular rate and rhythm. No murmur heard. Normal peripheral pulses. ABDOMEN: Soft, nontender, nondistended, normal active bowel sounds. MSK: Normal range of motion. No edema. SKIN: Warm, dry, no rash. NEURO: Alert and oriented x2, at baseline. No focal deficits. PSYCH: Normal mood and affect. rectal exam: Rectal exam done with female RN supervisor shuttle fitting present. Bedside guaiac stool test is positive. <Dave Huber PA-C - Last Filed: 07/25/24 00:00> Course BICYCLE REPAIRMAN/PA Physician Supervision I agree with midlevel documentation; I performed the medical decision making component of this evaluation. I had independent [id number] time with the patient and performed my own independent evaluation and assessment. Patient did have guaiac-positive stool and was transiently hypotensive on arrival. After resuscitation and evaluation with laboratory studies and imaging findings I believe he can be safely admitted at this time. Gastroenterology was spoken to over the phone with organizational consultant recommendations provided. Hospitalist was made aware of the plan and agreeable to admission. Please see [facility] dictation for remaining details regarding patient's care and admission. <Norberto Mccrary MD - Last Filed: 07/24/24 22:33> Vital Signs Vital signs: Vital Signs Temperature 98.5 F 07/24/24 18:11 Oxygen Delivery Room Air 07/24/24 18:11 Temperature 98.4 F 07/24/24 22:33 Pulse Rate 60 07/24/24 22:33 Respiratory Rate 16 07/24/24 22:33 Blood Pressure 119/60 07/24/24 22:33 Pulse Oximetry 97 07/24/24 22:33 Oxygen Delivery Room Air 07/24/24 22:45 <Dave Huber PA-C - Last Filed: 07/25/24 00:00> Vital Signs Temperature 98.5 F 07/24/24 18:11 Oxygen Delivery Room Air 07/24/24 18:11 Temperature 98.4 F 07/24/24 22:33 Pulse Rate 60 07/24/24 22:33 Respiratory Rate 16 07/24/24 22:33 Blood Pressure 119/60 07/24/24 22:33 Pulse Oximetry 97 07/24/24 22:33 Oxygen Delivery Room Air 07/24/24 22:45 <Norberto Mccrary MD - Last Filed: 07/24/24 22:33> MDM - Syncope MDM Narrative Medical decision making narrative: This is a 84-year-old male who presents to the ED for chief complaint of syncopal episode while eating dinner tonight. Vitals on arrival show low blood pressure of 80/59 and sinus bradycardia in the 50s. EKG shows rhythm is sinus. He was started on a L of fluid on arrival. Alert oriented at his mental status baseline with no complaints on arrival. Shows anemia with a declining hemoglobin, 9.8 today. In June was in the 10-11 range. CMP shows elevated creatinine of 1.62 and BUN of 34. BNP slightly elevated at 1080, however not having signs of fluid overload. Chest x-ray is unremarkable. Bedside stool guaiac test is positive. Patient does have cardiac history in the past but no chest pain today. This syncopal episode could be cardiac related, no events detected on the monitor or his EKG today. There is evidence of possible GI bleed as well with the positive guaiac stool test, this could be contributing to weakness or syncopal event. Discussed the case with GI, Dr. blue will consult on the patient. I discussed admission with hospitalist HELEN agrees to admit under Dr. Meyers to [facility] with telemetry. Patient's blood pressure did improve during the visit in the ER with fluids. Vitals have essentially normalized. Remains bradycardic in the 50s and sometimes at a normal rate in the 60s. Discussed the plan of admission with patient's family and they are agreeable with this plan. <Dave Huber PA-C - Last Filed: 07/25/24 00:00> Lab Data Result diagrams: 07/24/24 18:46 07/24/24 18:46 <Dave Huber PA-C - Last Filed: 07/25/24 00:00> Labs: Lab Results 07/24/24 07/24/24 Range/Units 18:45 18:46 WBC 5.5 (4.5-10.0) K/mm3 RBC 3.19 L (4.6-6.20) M/mm3 Hgb 9.8 L (14.0-18.0) g/dL Hct 29.6 L (42.0-52.0) % MCV 92.8 (80-100) fl MCH 30.7 (26-34) pg MCHC 33.1 (32-36) g/dl RDW 13.2 (11.5-14.5) % Plt Count 185 (150-375) k/mm3 MPV 10.6 H (7.4-10.4) fl Immature Gran % (Auto) 0.4 (0-0.5) % Neut % (Auto) 51.3 (45.5-73.1) % Lymph % (Auto) 30.4 (18.3-44.2) % Jones % (Auto) 13.5 H (2.6-8.5) % Eos % (Auto) 3.5 (0-4.4) % Baso % (Auto) 0.9 (0.2-1.2) % Lymph # (Auto) 1.67 (0.9-3.2) K/mm3 Jones # (Auto) 0.7 H (0.1-0.6) K/mm3 Eos # (Auto) 0.2 (0-0.3) K/mm3 Baso # (Auto) 0.1 (0.0-0.1) K/mm3 Abs Immat Gran (auto) 0.02 (0.00-0.031) K/mm3 Absolute Neuts (auto) 2.8 (1.3-6.7) K/mm3 Absolute Nucleated RBC 0.000 (0.0-0.012) K/mm3 Nucleated RBC % 0.0 (0.0-0.2) % Platelet Estimate Adequate (Adequate) Schistocytes None seen Sodium 136 L (137-145) mmol/L Potassium 4.4 (3.4-5.0) mmol/L Chloride 110 H (98-107) mmol/L Carbon Dioxide 22 (22-30) mmol/L Anion Gap 4 (4-12) mmol/L BUN 34 H (9-20) mg/dL Creatinine 1.62 H (0.7-1.3) mg/dL Estim Creat Clear Calc Not Reportable Estimated GFR 41 L (59 - ) Glucose 134 H (65-110) mg/dL Lactic Acid 1.0 (0.7-2.0) mmol/L Calcium 7.9 L (8.4-10.2) mg/dL Phosphorus 3.9 (2.5-4.5) mg/dL Magnesium 1.7 (1.6-2.3) mg/dL Total Bilirubin 0.3 (0.2-1.3) mg/dL AST 17 (17-59) U/L ALT 13 (6-50) U/L Alkaline Phosphatase 90 (38-126) U/L Troponin I < 0.012 (0.000-0.034) ng/mL NT-Pro-B Natriuret Pep 1080 H (19.9-100) pg/mL Total Protein 6.0 L (6.3-8.2) g/dL Albumin 3.0 L (3.5-5.1) g/dL <Dave Huber PA-C - Last Filed: 07/25/24 00:00> Lab Results 07/24/24 07/24/24 Range/Units 18:45 18:46 WBC 5.5 (4.5-10.0) K/mm3 RBC 3.19 L (4.6-6.20) M/mm3 Hgb 9.8 L (14.0-18.0) g/dL Hct 29.6 L (42.0-52.0) % MCV 92.8 (80-100) fl MCH 30.7 (26-34) pg MCHC 33.1 (32-36) g/dl RDW 13.2 (11.5-14.5) % Plt Count 185 (150-375) k/mm3 MPV 10.6 H (7.4-10.4) fl Immature Gran % (Auto) 0.4 (0-0.5) % Neut % (Auto) 51.3 (45.5-73.1) % Lymph % (Auto) 30.4 (18.3-44.2) % Jones % (Auto) 13.5 H (2.6-8.5) % Eos % (Auto) 3.5 (0-4.4) % Baso % (Auto) 0.9 (0.2-1.2) % Lymph # (Auto) 1.67 (0.9-3.2) K/mm3 Jones # (Auto) 0.7 H (0.1-0.6) K/mm3 Eos # (Auto) 0.2 (0-0.3) K/mm3 Baso # (Auto) 0.1 (0.0-0.1) K/mm3 Abs Immat Gran (auto) 0.02 (0.00-0.031) K/mm3 Absolute Neuts (auto) 2.8 (1.3-6.7) K/mm3 Absolute Nucleated RBC 0.000 (0.0-0.012) K/mm3 Nucleated RBC % 0.0 (0.0-0.2) % Platelet Estimate Adequate (Adequate) Schistocytes None seen Sodium 136 L (137-145) mmol/L Potassium 4.4 (3.4-5.0) mmol/L Chloride 110 H (98-107) mmol/L Carbon Dioxide 22 (22-30) mmol/L Anion Gap 4 (4-12) mmol/L BUN 34 H (9-20) mg/dL Creatinine 1.62 H (0.7-1.3) mg/dL Estim Creat Clear Calc Not Reportable Estimated GFR 41 L (59 - ) Glucose 134 H (65-110) mg/dL Lactic Acid 1.0 (0.7-2.0) mmol/L Calcium 7.9 L (8.4-10.2) mg/dL Phosphorus 3.9 (2.5-4.5) mg/dL Magnesium 1.7 (1.6-2.3) mg/dL Total Bilirubin 0.3 (0.2-1.3) mg/dL AST 17 (17-59) U/L ALT 13 (6-50) U/L Alkaline Phosphatase 90 (38-126) U/L Troponin I < 0.012 (0.000-0.034) ng/mL NT-Pro-B Natriuret Pep 1080 H (19.9-100) pg/mL Total Protein 6.0 L (6.3-8.2) g/dL Albumin 3.0 L (3.5-5.1) g/dL <Norberto Mccrary MD - Last Filed: 07/24/24 22:33> ECG Data EKG #1: ECG completion date: 07/24/24 <Dave Huber PA-C - Last Filed: 07/25/24 00:00> ECG completion time: 18:19 <Dave Huber PA-C - Last Filed: 07/25/24 00:00> Prior ECG tracings: available for review <Dave Huber PA-C - Last Filed: 07/25/24 00:00> Interpretation: Sinus bradycardia Rate 52 No av block No acute ischemic findings Largely unchanged from previous ECG 07/11/2024 <Dave Huber PA-C - Last Filed: 07/25/24 00:00> Discharge Plan Discharge Clinical Impression: GI bleed, Syncope <Dave Huber PA-C - Last Filed: 07/25/24 00:00> Patient Disposition: Still a Patient <Dave Huber PA-C - Last Filed: 07/25/24 00:00> Condition: Stable <Dave Huber PA-C - Last Filed: 07/25/24 00:00>
[2024-07-24 18:54] LABS: Basophils Absolute Auto 0.1 K/mm3 (0.0-0.1); Basophils Percent Auto 0.9 % (0.2-1.2); Eosinophils Absolute Auto 0.2 K/mm3 (0-0.3); Eosinophils Percent Auto 3.5 % (0-4.4); Hematocrit 29.6 % (42.0-52.0); Hemoglobin 9.8 g/dL (14.0-18.0); Immature Granulocyte Absolute 0.02 K/mm3 (0.00-0.031); Immature Granulocyte Percent A 0.4 % (0-0.5); Lymphocytes Absolute Auto 1.67 K/mm3 (0.9-3.2); Lymphocytes Percent Auto 30.4 % (18.3-44.2); Mean Corpuscular HGB Conc 33.1 g/dl (32-36); Mean Corpuscular Hemoglobin 30.7 pg (26-34); Mean Corpuscular Volume 92.8 fl (80-100); Mean Platelet Volume 10.6 fl (7.4-10.4); Monocytes Absolute Auto 0.7 K/mm3 (0.1-0.6); Monocytes Percent Auto 13.5 % (2.6-8.5); Neutrophils Absolute Auto 2.8 K/mm3 (1.3-6.7); Neutrophils Percent Auto 51.3 % (45.5-73.1); Platelet Count Result 185 k/mm3 (150-375); Red Blood Count 3.19 M/mm3 (4.6-6.20); Red Cell Distribution Width 13.2 % (11.5-14.5); White Blood Count 5.5 K/mm3 (4.5-10.0)
[2024-07-24] MEDS: SODIUM CHLORIDE 0.9% IV 1,000 ML 999 ML IV CONT (18:59)
[2024-07-24 19:09] LABS: Alanine Aminotransferase 13 U/L (6-50); Alkaline Phosphatase 90 U/L (38-126); Anion Gap 4 mmol/L (4-12); Aspartate Amino Transferase 17 U/L (17-59); Bilirubin,Total 0.3 mg/dL (0.2-1.3); Blood Urea Nitrogen 34 mg/dL (9-20); Calcium 7.9 mg/dL (8.4-10.2); Carbon Dioxide 22 mmol/L (22-30); Chloride 110 mmol/L (98-107); Estimated Glomerular Filt Rate 41; Glucose 134 mg/dL (65-110); Magnesium 1.7 mg/dL (1.6-2.3); Phosphorus 3.9 mg/dL (2.5-4.5); Potassium 4.4 mmol/L (3.4-5.0); Sodium 136 mmol/L (137-145)
[2024-07-24 19:10] VITALS: BP 111/49; PULSE 52; RESP 16; TEMP 36.3; O2SAT 98
[2024-07-24 19:20] LABS: NT Pro B Type Natriuretic Pept 1080 pg/mL (19.9-100); Troponin I < 0.012 ng/mL (0.000-0.034)
[2024-07-24 19:43] LABS: Platelet Estimate Adequate (Adequate)
[2024-07-24 19:44] LABS: Schistocytes None Seen
[2024-07-24 19:56] VITALS: BP 123/53; PULSE 54; RESP 16; TEMP 36.6; O2SAT 100
[2024-07-24 21:51] LABS: Add Urine Microscopic? YES; Appearance Urine Clear (Clear); Bacteria Urine None Seen /hpf; Bilirubin Urine Negative (Negative); Blood Urine Negative (Negative); Color Urine Yellow (Yellow); Glucose Urine UA Negative (Negative); Hyaline Casts Urine Present /lpf; Ketones Urine Negative (Negative); Leukocyte Esterase Ur Trace LEU/UL (Negative); Nitrate Urine Negative (Negative); Non Pathogenic Casts >20; Protein Urine Trace mg/dL (Negative); RBC Urine 0-2 /hpf (0-2); Specific Grav Ur 1.019 (1.001-1.035); Squamous Epithelial Cell Urine None Seen /hpf (Few); Urobilinogen Urine 0.2 mg/dL (<2.0); WBC Urine 0-5 /hpf (0-3)
--- NOTE | 2024-07-24 22:32 | ADMGEN ---
This patient, Tung Rodriguez, was admitted to Medical Room 251-01. Patient/family oriented to hospital policies and general routines including ID bracelet, bed and alarms, visiting hours, pain management, procedures, bathroom and other care routines, personal items, smoking policy, room service/diet, and visiting hours. Information on how to activate the Rapid Response Team has been discussed. Patient/Family are encouraged to report perceived risks to care and to ask questions if they do not understand what they are told or what they should do.
[2024-07-24 22:33] VITALS: BP 119/60; PULSE 60; RESP 16; TEMP 36.9; O2SAT 97
[2024-07-24 23:01] VITALS: BP 118/48; PULSE 61; RESP 18; TEMP 36.9; O2SAT 100
[2024-07-25] VITALS (8 sets, daily range): BP systolic 120–151; BP diastolic 48–62; PULSE 60–77; RESP 16–20; TEMP 36.1–36.9; O2SAT 98–100
--- NOTE | 2024-07-25 | ECHO_ITS ---
Patient Info Name: Tung Rodriguez Age: 84 years : 1940 Gender: Male Ht: 72 in Wt: 169 lbs BSA: 1.97 m2 HR: 60 bpm BP: 124 / 48 mmHg Technical Quality: Fair Exam Date: 07/25/2024 11:48 AM Exam Location: Echo Lab Patient Status: Outpatient Admit Date: 07/24/2024 Staff Ordering Physician: Dave Huber PA-C Sales Host: Evangelina Mcbride RDCS Attending Provider: Melissa Meyers DO Referring Physician: Mayo THAYER; Exam Type: CA echo doppler color flow Study Info Indications - SYNCOPE Complete two-dimensional, color flow and Doppler transthoracic echocardiogram is performed. Summary 1. Left ventricular chamber dimension is normal. 2. Left ventricular systolic function is mildly reduced, estimated at 45-50%. 3. There is mildly increased left ventricular wall thickness. 4. The left ventricular diastolic function is grade I diastolic dysfunction. 5. Right ventricular systolic function is normal. 6. There is mild mitral valve regurgitation. Left Ventricle Left ventricular chamber dimension is normal. Left ventricular systolic function is mildly reduced, estimated at 45-50%. There is mildly increased left ventricular wall thickness. Left ventricular septal wall motion is abnormal with septal motion related to a post-operative state. The left ventricular diastolic function is grade I diastolic dysfunction. Right Ventricle Right ventricular chamber dimension is normal. Right ventricular systolic function is normal. Left Atria Left atrial chamber dimension is normal. Right Atria Right atrial chamber dimension is normal. Atrial Septum Intact interatrial septum visualized by color flow imaging. Aortic Valve The aortic valve is not well visualized. There is no aortic valve regurgitation. There is moderate aortic valve calcification. Pulmonic Valve The pulmonic valve is not well visualized. There is no pulmonic regurgitation. Mitral Valve There is mild mitral valve regurgitation. The mitral valve annulus is mildly calcified. Tricuspid Valve There is trace tricuspid valve regurgitation. Pericardium/Pleural There is no pericardial effusion. Inferior Vena Cava Inferior vena cava is not well visualized. Aorta The aortic root size at the sinus of Valsalva is normal. Left Ventricular Outflow Tract Name Value Normal LVOT 2D LVOT Diameter 2.1 cm LVOT Doppler LVOT Peak Gradient 3 mmHg LVOT Mean Gradient 2 mmHg LVOT VTI 22 cm LVOT VTI/AV VTI Ratio 0.6 LVOT Stroke Volume 76 ml Pulmonic Valve Name Value Normal RVOT Doppler RVOT Peak Gradient 2 mmHg PV Doppler PV Peak Gradient 3 mmHg Mitral Valve Name Value Normal MV Doppler MV Peak Gradient 6 mmHg MV Mean Gradient 3 mmHg MV Decel Frio 909 cm/s2 MV PHT 28 ms MV Area (PHT) 7.8 cm2 4.0-5.0 MV Area (Cont Eq VTI) 2.2 cm2 MV Diastolic Function MV E Peak Velocity 89 cm/s MV A Peak Velocity 95 cm/s MV E/A 0.9 MV Decel Time 97 ms Aorta Name Value Normal Ascending Aorta Ao Root Diameter (MM) 3.5 cm Ao Root Diam Index (MM) 1.8 cm/m2 Aortic Valve Name Value Normal AV Doppler AV Peak Velocity 152 cm/s AV Peak Gradient 9 mmHg AV Mean Gradient 6 mmHg AV VTI 34 cm AV Area (Cont Eq VTI) 2.2 cm2 >=3.0 AV Area (Cont Eq Nir) 2.1 cm2 AV Regurgitation 2D LVOT Area 3.5 cm2 Ventricles Name Value Normal LV Dimensions 2D/MM IVS Diastolic Thickness (2D) 1.2 cm 0.6-1.0 LVID Diastole (2D) 4.6 cm 4.2-5.8 LVIW Diastolic Thickness (2D) 1.0 cm 0.6-1.0 LVID Systole (2D) 3.2 cm 2.5-4.0 LVOT Diameter 2.1 cm LV Mass (2D Cubed) 176.09 g 88.00-224.00 LV Mass Index (2D Cubed) 89 g/m2 49-115 Relative Wall Thickness (2D) 0.44 LV Fractional Shortening/Ejection Fraction 2D/MM LV Fractional Shortening (2D) 30 % 25-43 LV EF (2D Teicholz) 57 % 52-72 LV Diastolic Volume (4C MOD) 127 ml LV EF (4C MOD) 46 % LV Diastolic Volume (2C MOD) 105 ml LV EF (2C MOD) 46 % LV Diastolic Volume (BP MOD) 116 ml 62-150 LV Diastolic Volume Index (BP MOD) 59 ml/m2 34-74 LV Systolic Volume (BP MOD) 63 ml 21-61 LV Systolic Volume Index (BP MOD) 32 ml/m2 11-31 LV EF (BP MOD) 46 % 52-72 LV Diastolic Length (4C) 8.8 cm LV Systolic Length (4C) 7.3 cm LV Stroke Volume (4C MOD) 59 ml Atria Name Value Normal LA Dimensions LA Dimension (MM) 4.3 cm 3.0-4.1 LA Volume (4C A-L) 61 ml LA Volume (BP A-L) 63 ml RA Dimensions RA Area (4C) 14.6 cm2 <=18.0 Report Signatures
--- NOTE | 2024-07-25 09:31 | WPDGICN ---
Assessment and Plan Assessment and plan (1) GI bleed: Qualifiers: GI bleed type/associated pathology: unspecified gastrointestinal hemorrhage type Qualified Code(s): K92.2 - Gastrointestinal hemorrhage, unspecified <Martha Khanna. aPmela [employer] - Last Filed: 07/25/24 09:53> Code(s): K92.2 - Gastrointestinal hemorrhage, unspecified <Martha Santiago [facility] - Last Filed: 07/25/24 09:53> Status: Acute <Martha D. Pamela [facility] - Last Filed: 07/25/24 09:53> (2) Anemia: Qualifiers: Anemia type: unspecified type Qualified Code(s): D64.9 - Anemia, unspecified <Martha Khanna. Pamela [facility] - Last Filed: 07/25/24 09:53> Code(s): D64.9 - Anemia, unspecified <Martha Khanna. Pamela [facility] - Last Filed: 07/25/24 09:53> Status: Acute <Martha Khanna. Pamela [facility] - Last Filed: 07/25/24 09:53> (3) Syncope: Qualifiers: Syncope type: unspecified Qualified Code(s): R55 - Syncope and collapse <Martha Khanna. Pamela [facility] - Last Filed: 07/25/24 09:53> Code(s): R55 - Syncope and collapse <Martha Khanna. Pamela [facility] - Last Filed: 07/25/24 09:53> Status: Acute <Martha Santiago [facility] - Last Filed: 07/25/24 09:53> (4) Hypotension: Qualifiers: Hypotension type: idiopathic hypotension Qualified Code(s): I95.0 - Idiopathic hypotension <Martha D. Cinthyasallykiah [facility] - Last Filed: 07/25/24 09:53> Code(s): I95.9 - Hypotension, unspecified <Martha DLulu Santiago [facility] - Last Filed: 07/25/24 09:53> Status: Acute <Martha Santiago [facility] - Last Filed: 07/25/24 09:53> Assessment and Plan: 1. Anemia/heme positive stool/GI bleed ?: Endoscopy history unknown. Family medical history unknown GI consulted for possible GI bleed. According to documentation patient was noted to have heme-positive stools prior to admission. No BM since admission and nurse states that there was no mention of hematochezia or melena prior to admission. 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 Patient does not appear to have been on aspirin or anticoagulation before admission. Patient was recently hospitalized July 11 for hypotension and last labs showed Hgb 11 and Hct 33 and was noted to have a systolic BP is 70 by EMS. Vitals today showed BP 124/48 and pulse 60. Labs today showed WBC 6, HGB 10, HCT 30, MCV 93, platelets 185. No signs of active GI bleeding at this time. Patient denies any Gi complaints but does have Alzheimer's so I am unsure how reliable he is. DDX: Ischemic condition versus IBD versus AVM versus neoplasm versus peptic ulcer disease versus other etiology. Will check anemia workup but etiology is likely multifactorial no indication for emergent endoscopic evaluation at this time unless active GI bleeding noted or patient has unstable H&H Primary care team to continue monitoring H&H and transfuse as needed to keep HGB > 7 Care with aspirin and anticoagulants continue monitoring for signs of GI bleeding If anemia does not improve may consider colonoscopy +/- EGD as outpatient once he is more hemodynamically stable 2. Syncope/hypotension: This is the patient's 2nd hospitalization since the end of June for hypotension. Patient was brought to the emergency room via EMS after having a syncopal episode at dinner yesterday. While being transported to the hospital he was noted to have a systolic blood pressure of 70 with bradycardia. Troponin negative x1, lactic acid 1.0, and BNP 1080. Vitals today show BP 124/48 and pulse 60. Patient is upright and sitting in a recliner at bedside with no complaints of dizziness. primary care team to continue monitoring and treat Thank you very much for allowing me share in the care this very nice patient This report may have been done utilizing a voice recognition system. Attempts have been made to correct errors. However, there may be uncorrected grammatical, spelling, and recognition errors present. <Martha Santiago APRN - Last Filed: 07/25/24 09:53> GI Consult Note Consult date/time: 07/25/24 09:31 <Martha Santiago APRN - Last Filed: 07/25/24 09:53> Reason for consult: GI bleed <Martha Santiago APRN - Last Filed: 07/25/24 09:53> GI bleed - I have reviewed our nurse practitioner's note, examined the patient and pertinent laboratory data. We have discussed the plan extensively and agreed with was stated in the note. In essence, this is a patient with Alzheimer's disease being admitted with a second episode of syncope and bradycardia in the abscence of overt GI bleeding (melena, hematochezia, hematemesis), who was found to have heme (+) stools in the ED. The patient will need a thorough cardiovascular evaluation to determine the cause of these recurrent syncopal episodes and bradycardia. We will order iron studies, and if he is not iron deficient and does not have objective evidence of gross GI bleeding, endoscopic studies are not indicated given his age and underlying medical conditions. <Ramirez Man MD - Last Filed: 07/25/24 17:27> HPI: Tung Rodriguez is a 84 year old pleasantly confused male with a history of Alzheimer's, CAD, 4 vessel CABG, HLD, and HTN. He presented to the emergency room via EMS from [facility] after syncopal episode dinner. GI has been consulted for GI bleed. Patient was previously admitted to the hospital July 11 for hypotension. EMS records states that when patient was picked up systolic blood pressure was 70 with bradycardia. BP today 124/48 and pulse 60. Troponin negative x1 and BNP 1080. On arrival patient shown to have HGB 10 and HCT 30. No signs of active GI bleeding at this time but according to documentation patient was previously noted to have a heme-positive stool. Patient is pleasantly confused so I was unable to insure the accuracy subjective information provided from the patient. Patient denies any GI complaints. He states that his last colonoscopy was a long time ago . He denies any swallowing difficulty, abdominal pain, diarrhea, constipation, hematochezia, or melena. Family medical history unknown. It does not appear that the patient was on any NSAIDs, aspirin, or anticoagulation prior to admission. ENDOSCOPY HISTORY: EGD: No known prior EGD history COLONOSCOPY: Per patient's last colonoscopy was a long time ago but this could not be verified. LABS AND STOOL STUDIES: Labs 07/25/2023 showed sodium 136, potassium 4.4, BUN 34, creatinine 1.62, GFR 41. WBC 7, HGB 11, HCT 30, MCV 93, platelets 185. Total bilirubin 0.3, AST 17, ALT 13, alkaline phosphatase 90, albumin 3.0 Lactic acid 1.0, calcium 7.9, phosphorus 3.9, magnesium 1.7 Troponin negative x1 and BNP 1080 LABS 07/14/2024: WBC 7, HGB 11, HCT 33, MCV 91, platelets 214. IMAGING: No recent GI imaging available <Martha Santiago APRN - Last Filed: 07/25/24 09:53> Review of Systems Constitutional: Constitutional: Reports as per HPI and Reports weakness <Martha Santiago APRN - Last Filed: 07/25/24 09:53> ENT: Reports as per HPI <Martha Santiago APRN - Last Filed: 07/25/24 09:53> Cardiovascular: Cardiovascular: Reports as per HPI, Denies chest pain, Denies leg edema, Denies palpitations and Denies dyspnea <Martha Santiago APRN - Last Filed: 07/25/24 09:53> Respiratory: Respiratory: Denies cough and Denies dyspnea <Martha Santiago APRN - Last Filed: 07/25/24 09:53> Gastrointestinal: Gastrointestinal: Reports as per HPI <Martha Santiago APRN - Last Filed: 07/25/24 09:53> Musculoskeletal: Musculoskeletal: Reports as per HPI <Martha Santiago APRN - Last Filed: 07/25/24 09:53> Integumentary/Breasts: Skin/Breast: Reports as per HPI <Martha Santiago APRN - Last Filed: 07/25/24 09:53> Psychiatric: Psychiatric: Reports as per HPI <Martha Santiago APRN - Last Filed: 07/25/24 09:53> Endocrine: Endocrine: Reports no additional endocrine complaints <Martha Santiago APRN - Last Filed: 07/25/24 09:53> Hematologic/Lymphatic: Hematologic/Lymphatic: Reports no additional hematologic/lymphatic complaints <Martha Santiago APRN - Last Filed: 07/25/24 09:53> [facility] Past Medical History Medical History: Medical History (Updated 07/25/24 @ 09:50 by Martha Santiago APRN) Coronary artery disease Depression Vitamin D deficiency Dementia Hyperlipidemia Hypertension <Martha Santiago APRN - Last Filed: 07/25/24 09:53> Surgical History Surgical History: Surgical History (Updated 07/11/24 @ 21:17 by Darcy Huerta PA-C) History of bilateral knee arthroplasty History of four vessel coronary artery bypass graft <Martha Santiago APRN - Last Filed: 07/25/24 09:53> Family History Family History: Family History Other Family history unknown <Martha Santiago APRN - Last Filed: 07/25/24 09:53> Social History Social History: Social History (Updated 07/11/24 @ 21:19 by Darcy Huerta PA-C) Social History: Healthcare power of insurance attorney: Teressa Espinal, daughter. Code status: Full code. Smoking status: Unknown if ever smoked Alcohol intake: unknown Substance use: unknown Do You Feel Safe in your Home?: Yes Lack of Transportation: No Lack of Food: Never True Current Housing: I Have Housing Concerned About Future Housing: No Difficulty Paying Gas/Electric Bills: No Difficulty Paying for Meds: No Currently Unemployed: No Education: High School Diploma/GED Difficulty w/ Childcare or Family Care: No Additional living arrangements comments: Assisted living at [facility]. 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 Spiritual care concerns: No <Martha Santiago APRN - Last Filed: 07/25/24 09:53> Meds Home Medications and Allergies Home medications: Home Medications ?Medication ?Instructions ?Recorded ?Confirmed ?Type carvedilol 12.5 mg tablet 12.5 mg PO DAILY 07/11/24 07/24/24 History carvedilol 25 mg tablet 25 mg PO QPM 07/11/24 07/24/24 History cholecalciferol (vitamin D3) 25 25 mcg PO DAILY 07/11/24 07/24/24 History mcg (1,000 unit) tablet donepezil 10 mg tablet (Aricept) 10 mg PO HS 07/11/24 07/24/24 History fluoxetine 20 mg tablet 20 mg PO HS 07/11/24 07/24/24 History lisinopril 20 mg tablet 20 mg PO DAILY 07/11/24 07/24/24 History memantine 10 mg tablet 10 mg PO BID 07/11/24 07/24/24 History simvastatin 40 mg tablet 40 mg PO HS 07/11/24 07/24/24 History vitamin E 670 mg (1,000 unit) 670 mg PO DAILY 07/11/24 07/24/24 History capsule <Martha Santiago APRN - Last Filed: 07/25/24 09:53> Allergies/Adverse reactions: Allergies Allergy/AdvReac Type Severity Reaction Status Date / Time mold Allergy Unknown Verified 07/12/24 00:07 Penicillins Allergy Anaphylaxis Verified 07/12/24 00:07 pollen extracts Allergy Unknown Verified 07/12/24 00:07 Sulfa (Sulfonamide Allergy Unknown Verified 07/12/24 00:07 Antibiotics) <Martha Santiago APRN - Last Filed: 07/25/24 09:53> Vital Signs Vital Signs - 24 hr 07/24/24 18:11 07/24/24 18:16 07/24/24 19:10 Temperature 98.5 F 98.5 F 97.3 F L Pulse Rate 56 L 52 L Respiratory Rate 18 16 Blood Pressure 88/59 L 111/49 L Pulse Oximetry 95 98 Oxygen Delivery Room Air 07/24/24 19:56 07/24/24 22:33 07/24/24 22:45 Temperature 97.8 F 98.4 F Pulse Rate 54 L 60 Respiratory Rate 16 16 Blood Pressure 123/53 L 119/60 Pulse Oximetry 100 97 Oxygen Delivery Room Air 07/24/24 23:01 07/25/24 00:00 07/25/24 04:00 Temperature 98.5 F Pulse Rate 61 60 60 Respiratory Rate 18 Blood Pressure 118/48 L Pulse Oximetry 100 Oxygen Delivery 07/25/24 06:00 Temperature 98.4 F Pulse Rate 60 Respiratory Rate 18 Blood Pressure 124/48 L Pulse Oximetry 100 Oxygen Delivery <Martha Santiago APRN - Last Filed: 07/25/24 09:53> Exam Const: General: cooperative, healthy appearing, comfortable, no acute distress and well developed <Martha Santiago APRN Last Filed: 07/25/24 09:53> Orientation/consciousness: oriented to person, oriented to place, oriented to time and patient oriented x3 <Martha Santiago APRN - Last Filed: 07/25/24 09:53> HENMT: Head: normal to inspection, normocephalic and atraumatic <Martha Santiago APRN Last Filed: 07/25/24 09:53> Mouth: Yes Normal oral and palatal mucosa present and Yes moist mucous membranes <Martha Santiago APRN Last Filed: 07/25/24 09:53> Eyes: General: appearance normal, both eyes and all related structures <Martha Santiago APRN - Last Filed: 07/25/24 09:53> Conjunctivae: conjunctivae normal <Martha Santiago APRN Last Filed: 07/25/24 09:53> Sclera: sclerae normal <Martha Santiago APRN Last Filed: 07/25/24 09:53> Pupils: Equal, round and reactive pupils present <Martha Santiago APRN Last Filed: 07/25/24 09:53> Neck: Neck: normal visual inspection <Martha Santiago APRN Last Filed: 07/25/24 09:53> Chest: Chest palpation & inspection: normal inspection of the chest <Martha Santiago APRN - Last Filed: 07/25/24 09:53> Resp: Effort & Inspection: normal respiratory effort and able to speak in complete sentences <Martha Santiago APRN - Last Filed: 07/25/24 09:53> Auscultation: clear to auscultation bilaterally <Martha Santiago APRN - Last Filed: 07/25/24 09:53> Cardio: Jugular venous distension: no JVD <[facility] Last Filed: 07/25/24 09:53> Rate: regular rate <[facility] Last Filed: 07/25/24 09:53> Rhythm: regular rhythm <[facility] Last Filed: 07/25/24 09:53> Heart sounds: S1 normal heart sound present and S2 normal heart sound present <Martha Mendesdave [employer] - Last Filed: 07/25/24 09:53> GI: Inspection: normal to inspection <Martha Mendesdvae [facility] Last Filed: 07/25/24 09:53> GI Palp: Yes Soft to palpation and Yes No hepatosplenomegaly present <Martha Mendesdave [employer] - Last Filed: 07/25/24 09:53> Auscultation: normal bowel sounds <Martha Mendesdave [employer] - Last Filed: 07/25/24 09:53> Rectal Exam: deferred <[facility] Last Filed: 07/25/24 09:53> Skin: General skin exam: normal color and no rashes or lesions noted <Martha Mendesdave [employer] - Last Filed: 07/25/24 09:53> Neuro: General: oriented to person <Martha Mendesdave [employer] - Last Filed: 07/25/24 09:53> Cranial nerves: Yes Equal, round and reactive pupils present <Martha Mendesdave [employer] - Last Filed: 07/25/24 09:53> Speech: normal speech <Martha Mendesdave [employer] - Last Filed: 07/25/24 09:53> Extrem: General: normal to inspection and no clubbing, cyanosis or edema <Martha KhannaLulu Cinthyadave [employer] - Last Filed: 07/25/24 09:53> Psych: Appearance: grossly normal and well kempt <M[facility] KhannaLulu [facility] Last Filed: 07/25/24 09:53> Affect: normal affect <Martha KhannaLulu Santiago [employer] - Last Filed: 07/25/24 09:53> Results Labs CBC & Chem 7: 07/24/24 18:46 07/24/24 18:46 <Martha Santiago APRN - Last Filed: 07/25/24 09:53> Labs: Short CBC 07/24/24 Range/Units 18:46 WBC 5.5 (4.5-10.0) K/mm3 Hgb 9.8 L (14.0-18.0) g/dL Hct 29.6 L (42.0-52.0) % Plt Count 185 (150-375) k/mm3 BMP 07/24/24 18:46 Sodium 136 L Potassium 4.4 Chloride 110 H Carbon Dioxide 22 BUN 34 H Creatinine 1.62 H Glucose 134 H Calcium 7.9 L Cardiac Enzymes 07/24/24 Range/Units 18:45 Troponin I < 0.012 (0.000-0.034) ng/mL Liver Function 07/24/24 Range/Units 18:46 Total Bilirubin 0.3 (0.2-1.3) mg/dL AST 17 (17-59) U/L ALT 13 (6-50) U/L Alkaline Phosphatase 90 (38-126) U/L Albumin 3.0 L (3.5-5.1) g/dL Urine 07/24/24 Range/Units 21:01 Urine Color Yellow (Yellow) Urine Appearance Clear (Clear) Urine pH 5.0 (5.0-9.0) Ur Specific [place] 1.019 (1.001-1.035) Urine Protein Trace (Negative) mg/dL Urine Glucose (UA) Negative (Negative) mg/dL <Martha Santiago APRN - Last Filed: 07/25/24 09:53>
--- NOTE | 2024-07-25 09:48 | P.HP_ITS ---
H&P: HPI History of Present Illness Date/Time: 07/25/24 09:48 Chief Complaint: syncopal episode Narrative: 84-year-old male with PMH/o history of Alzheimer's, CAD, 4 vessel CABG, HLD, and HTN admitted from ed from local skilled nursing for chief complaint of syncopal episode that happened last evening at dinner. It was reported by EMS that patient ?slumped over? at the dinner table. Upon arrival to ED, his BP was 80/59, sinus isabel, 50's. Patient is unsure of what happened. He is A&O x2, but this is his mental status baseline with Alzheimer dementia. Daughter is bedside and confirms a/o x 2 his baseline. Of note, he was admitted to the hospital last month for dehydration and hypotension. ED work up showed anemia with a hemoglobin, 9.8. In June - 04-28 range. CMP -cr 1.62 and BUN of 34. BNP slightly elevated at 1080, however not having signs of fluid overload. Chest x-ray is unremarkable. Bedside stool guaiac test is positive. Patient does have cardiac history in the past but no chest pain. This syncopal episode could be cardiac related- but EKG was unremarkable. GI was consulted in ED and agreed to follow. Unable to collect much info from pt as he is unable to recall much history, unsure meds he is taking. oriented to self and place. Review of Systems Review of Systems: All systems reviewed & are unremarkable except as noted in HPI and below PMFSH Past Medical History Medical History (Updated 07/25/24 @ 09:50 by Martha Santiago APRN) Coronary artery disease Depression Vitamin D deficiency Dementia Hyperlipidemia Hypertension Surgical History Surgical History (Updated 07/11/24 @ 21:17 by Darcy Huerta PA-C) History of bilateral knee arthroplasty History of four vessel coronary artery bypass graft Family History Family History Other Family history unknown Social History Social History (Updated 07/11/24 @ 21:19 by Darcy Huerta PA-C) Social History: Healthcare power of corporate associate attorney: Teressa Espinal, daughter. Code status: Full code. Smoking status: Unknown if ever smoked Alcohol intake: unknown Substance use: unknown Do You Feel Safe in your Home?: Yes Lack of Transportation: No Lack of Food: Never True Current Housing: I Have Housing Concerned About Future Housing: No Difficulty Paying Gas/Electric Bills: No Difficulty Paying for Meds: No Currently Unemployed: No Education: High School Diploma/GED Difficulty w/ Childcare or Family Care: No Additional living arrangements comments: Assisted living at [facility]. 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 Spiritual care concerns: No Meds Home Medications and Allergies Home Medications ?Medication ?Instructions ?Recorded ?Confirmed ?Type carvedilol 12.5 mg tablet 12.5 mg PO DAILY 07/11/24 07/24/24 History carvedilol 25 mg tablet 25 mg PO QPM 07/11/24 07/24/24 History cholecalciferol (vitamin D3) 25 25 mcg PO DAILY 07/11/24 07/24/24 History mcg (1,000 unit) tablet donepezil 10 mg tablet (Aricept) 10 mg PO HS 07/11/24 07/24/24 History fluoxetine 20 mg tablet 20 mg PO HS 07/11/24 07/24/24 History lisinopril 20 mg tablet 20 mg PO DAILY 07/11/24 07/24/24 History memantine 10 mg tablet 10 mg PO BID 07/11/24 07/24/24 History simvastatin 40 mg tablet 40 mg PO HS 07/11/24 07/24/24 History vitamin E 670 mg (1,000 unit) 670 mg PO DAILY 07/11/24 07/24/24 History capsule Allergies Allergy/AdvReac Type Severity Reaction Status Date / Time mold Allergy Unknown Verified 07/12/24 00:07 Penicillins Allergy Anaphylaxis Verified 07/12/24 00:07 pollen extracts Allergy Unknown Verified 07/12/24 00:07 Sulfa (Sulfonamide Allergy Unknown Verified 07/12/24 00:07 Antibiotics) Vital Signs Vital Signs - 24 hr 07/24/24 18:11 07/24/24 18:16 07/24/24 19:10 Temperature 98.5 F 98.5 F 97.3 F L Pulse Rate 56 L 52 L Respiratory Rate 18 16 Blood Pressure 88/59 L 111/49 L Pulse Oximetry 95 98 Oxygen Delivery Room Air 07/24/24 19:56 07/24/24 22:33 07/24/24 22:45 Temperature 97.8 F 98.4 F Pulse Rate 54 L 60 Respiratory Rate 16 16 Blood Pressure 123/53 L 119/60 Pulse Oximetry 100 97 Oxygen Delivery Room Air 07/24/24 23:01 07/25/24 00:00 07/25/24 04:00 Temperature 98.5 F Pulse Rate 61 60 60 Respiratory Rate 18 Blood Pressure 118/48 L Pulse Oximetry 100 Oxygen Delivery 07/25/24 06:00 Temperature 98.4 F Pulse Rate 60 Respiratory Rate 18 Blood Pressure 124/48 L Pulse Oximetry 100 Oxygen Delivery Exam Const: General: comfortable Resp: Effort & Inspection: normal respiratory effort Auscultation: clear to auscultation bilaterally Cardio: Rate: regular rate Rhythm: regular rhythm GI: GI Palp: Yes Soft to palpation Auscultation: normal bowel sounds Skin: General skin exam: normal color Neuro: Motor exam (neuro): 5/5 motor strength present throughout Other: oriented x [address] Psych: Affect: normal affect H&P: Results Labs Labs: Short CBC 07/24/24 Range/Units 18:46 WBC 5.5 (4.5-10.0) K/mm3 Hgb 9.8 L (14.0-18.0) g/dL Hct 29.6 L (42.0-52.0) % Plt Count 185 (150-375) k/mm3 BMP 07/24/24 18:46 Sodium 136 L Potassium 4.4 Chloride 110 H Carbon Dioxide 22 BUN 34 H Creatinine 1.62 H Glucose 134 H Calcium 7.9 L Cardiac Enzymes 07/24/24 Range/Units 18:45 Troponin I < 0.012 (0.000-0.034) ng/mL Liver Function 07/24/24 Range/Units 18:46 Total Bilirubin 0.3 (0.2-1.3) mg/dL AST 17 (17-59) U/L ALT 13 (6-50) U/L Alkaline Phosphatase 90 (38-126) U/L Albumin 3.0 L (3.5-5.1) g/dL Urine 07/24/24 Range/Units 21:01 Urine Color Yellow (Yellow) Urine Appearance Clear (Clear) Urine pH 5.0 (5.0-9.0) Ur Specific [place] 1.019 (1.001-1.035) Urine Protein Trace (Negative) mg/dL Urine Glucose (UA) Negative (Negative) mg/dL Assessment and Plan Assessment and plan (1) Hypotension: Qualifiers: Hypotension type: idiopathic hypotension Qualified Code(s): I95.0 - Idiopathic hypotension Code(s): I95.9 - Hypotension, unspecified Status: Acute Assessment and Plan: stabel now lisinopril and 25 mg pm coreg are held on 12.5 coreg in am (2) Coronary artery disease: Code(s): I25.10 - Atherosclerotic heart disease of [place] coronary artery without angina pectoris Status: Acute Assessment and Plan: - 4 vessel CABG - coreg 12.5 mg daily, statin (3) GI bleed: Qualifiers: GI bleed type/associated pathology: unspecified gastrointestinal hemorrhage type Qualified Code(s): K92.2 - Gastrointestinal hemorrhage, unspecified Code(s): K92.2 - Gastrointestinal hemorrhage, unspecified Status: Acute (4) Anemia: Qualifiers: Anemia type: unspecified type Qualified Code(s): D64.9 - Anemia, unspecified Code(s): D64.9 - Anemia, unspecified Status: Acute Assessment and Plan: - gi consulted - no indication for emergent endoscopic evaluation at this time unless active GI bleeding noted or patient has unstable H&H - continue monitoring H&H and transfuse as needed to keep HGB > 7 - not on aspirin or anticoagulants - monitoring for signs of GI bleeding - If anemia does not improve may consider colonoscopy +/- EGD as outpatient once he is more hemodynamically stable (5) Dementia: Code(s): F03.90 - Unspecified dementia, unspecified severity, without behavioral disturbance, psychotic disturbance, mood disturbance, and anxiety Status: Acute Assessment and Plan: chronic contine chronic Aricept, memantine (6) Syncope: Qualifiers: Syncope type: unspecified Qualified Code(s): R55 - Syncope and collapse Code(s): R55 - Syncope and collapse Status: Acute Assessment and Plan: could be due to hypotensive episodes-recent hospitalization for dehydration, hypotension ekg done-sinus rhythm tele monitoring monitor for now Plan # hld- chronic # HTN- coreg, lisinopril. will continue coreg for now 12.5 mg daily and hold 25 mg dose and hold lisinopril monitor Quality VTE Prophylaxis VTE prophylaxis: mechanical ordered
[2024-07-25 12:24] LABS: Immature Reticulocyte Fraction 13.4 % (3.0-15.9); Reticulocyte Hemoglobin Conten 32.1 pg (28.2-36.6); Reticulocyte Percent 1.51 % (0.7-4.3); Reticulocytes Absolute 0.06 10^6/uL (0.02-0.10)
[2024-07-25 12:42] LABS: Iron 71 ug/dL (49-181)
[2024-07-25 12:51] LABS: Percent Iron Saturation 26 % (20-50)
[2024-07-25 13:40] LABS: Folic Acid 4.7 ng/mL (2.76->20)
[2024-07-25] MEDS: MEMANTINE 10 MG TABLET PO (17:03)
[2024-07-25] MEDS: DONEPEZIL HCL 10 MG TABLET PO (20:00)
[2024-07-25] MEDS: FLUoxetine HCL 20 MG CAPSULE PO (20:00)
[2024-07-25] MEDS: SIMVASTATIN 20 MG TABLET 40 MG PO (20:00)
[2024-07-26 06:00] VITALS: BP 152/83; PULSE 60; RESP 18; TEMP 36.4; O2SAT 98
--- NOTE | 2024-07-26 07:24 | PM.IMPN ---
Progress Note: A&P Assessment and Plan (1) Syncope: Qualifiers: Syncope type: unspecified Qualified Code(s): R55 - Syncope and collapse Code(s): R55 - Syncope and collapse Status: Acute Assessment and Plan: Likely secondary to dehydration and hypotension Recent hospitalization for dehydration and hypotension on 07/11 which resolved with IVF - EKG sinus bradycardia - Troponin negative x1 - Lactic acid 1.0 - BNP 1080 - Blood pressures have been elevated to the 150s systolic since holding lisinopril and decreasing coreg dosing to 12.5 daily. Increased coreg back to 25 mg daily. Continue holding lisinopril 20 mg daily. - Echo LVEF 45-50% with grade I diastolic dysfunction - Tele monitoring, patient refusing tele monitor - Monitor (2) Hypotension: Qualifiers: Hypotension type: idiopathic hypotension Qualified Code(s): I95.0 - Idiopathic hypotension Code(s): I95.9 - Hypotension, unspecified Status: Acute Assessment and Plan: Per chart review, patient slumped over at dinner table with a BP of 80/59, sinus isabel 50s. - Troponin negative x1 - Lactic acid 1.0 - BNP 1080 - Blood pressures have been elevated to the 150s systolic since holding lisinopril and decreasing coreg dosing to 12.5 daily. Increased coreg back to 25 mg daily. Continue holding lisinopril 20 mg daily. - Monitor (3) GI bleed: Qualifiers: GI bleed type/associated pathology: unspecified gastrointestinal hemorrhage type Qualified Code(s): K92.2 - Gastrointestinal hemorrhage, unspecified Code(s): K92.2 - Gastrointestinal hemorrhage, unspecified Status: Acute Assessment and Plan: Per chart review quaiac positive stool in the ED. No BM since admission and nurse states that there was no mention of hematochezia or melena prior to admission. 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 Patient does not appear to have been on aspirin or anticoagulation before admission. No signs of active GI bleeding at this time. - Monitor serum electrolytes, CBC, hemoglobin/hematocrit q.8 hours. If hemoglobin drops below 7 transfuse packed red blood cells - Monitor for bloody bowel movements,chest pain,SOB or dizziness/lightheadedness - Pantoprazole BID - DVT Px: SCDs, avoid anti-coagulations - GI consulted Will check anemia workup but etiology is likely multifactorial No indication for emergent endoscopic evaluation at this time unless active GI bleeding noted or patient has unstable H&H If anemia does not improve may consider colonoscopy +/- EGD as outpatient once he is more hemodynamically stable (4) Anemia: Qualifiers: Anemia type: unspecified type Qualified Code(s): D64.9 - Anemia, unspecified Code(s): D64.9 - Anemia, unspecified Status: Acute Assessment and Plan: H/H 9.8/29.6 on admission, previous admission range hgb was 10-11. Per chart review quaiac positive stool in the ED. No BM since admission and nurse states that there was no mention of hematochezia or melena prior to admission. 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 Patient does not appear to have been on aspirin or anticoagulation before admission. No signs of active GI bleeding at this time. - Not on ASA or anticoagulants - Iron panel WNL - Folate and B12 WNL - GI consulted Will check anemia workup but etiology is likely multifactorial No indication for emergent endoscopic evaluation at this time unless active GI bleeding noted or patient has unstable H&H If anemia does not improve may consider colonoscopy +/- EGD as outpatient once he is more hemodynamically stable (5) Coronary artery disease: Code(s): I25.10 - Atherosclerotic heart disease of [place] coronary artery without angina pectoris Status: Acute Assessment and Plan: - 4 vessel CABG - coreg 12.5 mg daily, statin (6) Dementia: Code(s): F03.90 - Unspecified dementia, unspecified severity, without behavioral disturbance, psychotic disturbance, mood disturbance, and anxiety Status: Acute Assessment and Plan: chronic contine chronic Aricept, memantine Time Spent With Patient Time with patient: 25 - 35 minutes Subjective Date/time seen: 07/26/24 07:24 Interval history: 84-year-old male with past medical history of Alzheimer's, CAD, 4 vessel CABG, HLD, and HTN [facility] the [facility] local [facility] for a syncopal episode. Patient is pleasant sitting in bed with a patient safety coordinator at bedside. Per RN patient has been wanting to jump out of bed and wander. Patient has no complaints at this time denying chest pain, shortness of breath, nausea/vomiting and abdominal pain. He also denies any dizziness/lightheadedness. Per patient safety coordinator patient has been able to ambulate to the bathroom on his own and she has not noted any abnormal gait or concern for balance issues. Review of Systems Review of Systems: All systems reviewed & are unremarkable except as noted in HPI and below Exam Narrative: AF HR 70 RR 18 SpO2 98 BP 138/69 General: male in no acute respiratory distress who is nontoxic appearing, sitting up in bed HEENT: Normocephalic. Atraumatic. Extraocular movement intact. Sclera clear and anicteric. No facial asymmetry. Chest: Lungs are clear to auscultation bilaterally. No wheezes or crackles. CV: Heart was regular rate and rhythm. S1/S2. No murmurs, gallops, or rubs. Abd: Abdomen was soft. Nontender. Nondistended. Positive bowel sounds. No organomegaly or masses. Neuro: Patient is alert. Speech is clear. Objective Data Vital Signs Vital Signs: Vital Signs - 24 hr 07/25/24 09:30 07/25/24 10:59 07/25/24 11:00 Temperature Pulse Rate 77 70 Respiratory Rate Blood Pressure 125/51 L 135/55 L Pulse Oximetry Oxygen Delivery Room Air 07/25/24 11:02 07/25/24 13:50 07/25/24 20:00 Temperature 97.0 F L Pulse Rate 65 64 Respiratory Rate 16 Blood Pressure 129/55 L 120/62 Pulse Oximetry 98 Oxygen Delivery Room Air 07/25/24 22:00 07/26/24 06:00 Temperature 98.2 F 97.6 F Pulse Rate 73 60 Respiratory Rate 20 18 Blood Pressure 151/62 H 152/83 H Pulse Oximetry 98 98 Oxygen Delivery Intake/Output Intake/Output: Intake & Output 07/23/24 07/24/24 07/25/24 07/26/24 23:59 23:59 23:59 23:59 Intake Total 1000 1120 200 Balance 1000 1120 200 Meds/Results Medications: Active Medications Generic Name Dose Route Start Last Admin Trade Name Freq PRN Reason Stop Dose Admin Acetaminophen 650 mg 07/24/24 20:36 Acetaminophen 325 Mg Tablet PO Q4H PRN Mild Pain (1-3) or Fever Carvedilol 12.5 mg 07/26/24 09:00 Carvedilol 12.5 Mg Tablet PO DAILY KENNA Donepezil HCl 10 mg 07/25/24 21:00 07/25/24 20:00 Donepezil Hcl 10 Mg Tablet PO 10 mg HS KENNA Administration Fluoxetine HCl 20 mg 07/25/24 21:00 07/25/24 20:00 Fluoxetine Hcl 20 Mg Capsule PO 20 mg HS KENNA Administration Memantine 10 mg 07/25/24 17:00 07/25/24 17:03 Memantine 10 Mg Tablet PO 10 mg BID KENNA Administration Ondansetron HCl 4 mg 07/24/24 20:36 Ondansetron Inj 4 Mg/2 Ml Vial IV PUSH Q4H PRN Nausea Perflutren Lipid Microsphere 0 ml 07/24/24 20:39 Perflutren Lipid Microspheres 1.5 Ml Vial Diluted To 10 Ml Total Volume IV PUSH 07/27/24 20:39 ONCE PRN adequate visualization Protocol Simvastatin 40 mg 07/25/24 21:00 07/25/24 20:00 Simvastatin 20 Mg Tablet PO 40 mg HS KENNA Administration Radiology Results: ITS Impressions Chest X-Ray 07/24/24 18:42 IMPRESSION: No focal infiltrate or effusion. Labs Labs: Laboratory Results - last 24 hr 07/25/24 12:17 Absolute Retic 0.06 Percent Retic 1.51 Immature Retic Fraction 13.4 Retic Hgb Content 32.1 Iron 71 TIBC 269 % Saturation 26 Ferritin 95.80 Vitamin B12 347.0 Folate 4.7 Quality VTE Prophylaxis VTE prophylaxis: mechanical ordered
[2024-07-26 07:50] LABS: Basophils Absolute Auto 0.1 K/mm3 (0.0-0.1); Basophils Percent Auto 1.1 % (0.2-1.2); Eosinophils Absolute Auto 0.2 K/mm3 (0-0.3); Eosinophils Percent Auto 3.3 % (0-4.4); Hematocrit 35.8 % (42.0-52.0); Hemoglobin 11.5 g/dL (14.0-18.0); Immature Granulocyte Absolute 0.02 K/mm3 (0.00-0.031); Immature Granulocyte Percent A 0.3 % (0-0.5); Lymphocytes Percent Auto 27.4 % (18.3-44.2); Mean Corpuscular HGB Conc 32.1 g/dl (32-36); Mean Corpuscular Hemoglobin 30.2 pg (26-34); Mean Platelet Volume 11.2 fl (7.4-10.4); Monocytes Absolute Auto 0.8 K/mm3 (0.1-0.6); Monocytes Percent Auto 11.7 % (2.6-8.5); Neutrophils Absolute Auto 3.7 K/mm3 (1.3-6.7); Neutrophils Percent Auto 56.2 % (45.5-73.1); Platelet Count Result 224 k/mm3 (150-375); Red Blood Count 3.81 M/mm3 (4.6-6.20); Red Cell Distribution Width 13.2 % (11.5-14.5); White Blood Count 6.6 K/mm3 (4.5-10.0)
[2024-07-26 08:14] VITALS: BP 138/69; PULSE 70; O2SAT 98
[2024-07-26 08:15] VITALS: O2SAT 98
[2024-07-26] MEDS: MEMANTINE 10 MG TABLET PO ×2 (08:15→17:12)
[2024-07-26 08:16] VITALS: PULSE 70
[2024-07-26] MEDS: carvediloL 25 MG TABLET PO (08:16)
[2024-07-26 09:37] LABS: Alanine Aminotransferase 15 U/L (6-50); Albumin Level 3.7 g/dL (3.5-5.1); Alkaline Phosphatase 93 U/L (38-126); Anion Gap 5 mmol/L (4-12); Aspartate Amino Transferase 24 U/L (17-59); Bilirubin,Total 0.5 mg/dL (0.2-1.3); Blood Urea Nitrogen 30 mg/dL (9-20); Carbon Dioxide 25 mmol/L (22-30); Chloride 108 mmol/L (98-107); Estimated CRCL calculation 35 ml/min; Estimated Glomerular Filt Rate 42; Glucose 116 mg/dL (65-110); Potassium 4.3 mmol/L (3.4-5.0); Sodium 138 mmol/L (137-145)
[2024-07-26 09:51] LABS: Iron 63 ug/dL (49-181)
[2024-07-26 10:01] LABS: Percent Iron Saturation 23 % (20-50)
--- NOTE | 2024-07-26 13:46 | P.PNGI_ITS ---
Progress Note: A&P Assessment and Plan (1) Occult blood in stools: Code(s): R19.5 - Other fecal abnormalities Status: Acute Assessment and Plan: the patient has no overt manifestation of GI bleeding or symptoms. Iron studies are normal. Therefore, given his age and current medical situation, no colonoscopy or EGD is warranted. Will sign off, will be glad to re-evaluate patient if his current GI situation changes. Subjective Date/time seen: 07/26/24 13:46 Interval history: Patient totally asymptomatic. Exam Narrative: Unchanged from yesterday. Objective Data Vital Signs Vital Signs: Vital Signs - 24 hr 07/25/24 13:50 07/25/24 20:00 07/25/24 22:00 Temperature 97.0 F L 98.2 F Pulse Rate 64 73 Respiratory Rate 16 20 Blood Pressure 120/62 151/62 H Pulse Oximetry 98 98 Oxygen Delivery Room Air 07/26/24 06:00 07/26/24 08:14 07/26/24 08:15 Temperature 97.6 F Pulse Rate 60 70 Respiratory Rate 18 Blood Pressure 152/83 H 138/69 Pulse Oximetry 98 98 98 Oxygen Delivery Room Air 07/26/24 08:16 Temperature Pulse Rate 70 Respiratory Rate Blood Pressure Pulse Oximetry Oxygen Delivery Intake/Output Intake/Output: Intake & Output 07/23/24 07/24/24 07/25/24 07/26/24 23:59 23:59 23:59 23:59 Intake Total 1000 1120 680 Balance 1000 1120 680 Meds/Results Medications: Active Medications Generic Name Dose Route Start Last Admin Trade Name Freq PRN Reason Stop Dose Admin Acetaminophen 650 mg 07/24/24 20:36 Acetaminophen 325 Mg Tablet PO Q4H PRN Mild Pain (1-3) or Fever Carvedilol 25 mg 07/26/24 09:00 07/26/24 08:16 Carvedilol 25 Mg Tablet PO 25 mg DAILY KENNA Administration Donepezil HCl 10 mg 07/25/24 21:00 07/25/24 20:00 Donepezil Hcl 10 Mg Tablet PO 10 mg HS KENNA Administration Fluoxetine HCl 20 mg 07/25/24 21:00 07/25/24 20:00 Fluoxetine Hcl 20 Mg Capsule PO 20 mg HS KENNA Administration Memantine 10 mg 07/25/24 17:00 07/26/24 08:15 Memantine 10 Mg Tablet PO 10 mg BID KENNA Administration Ondansetron HCl 4 mg 07/24/24 20:36 Ondansetron Inj 4 Mg/2 Ml Vial IV PUSH Q4H PRN Nausea Perflutren Lipid Microsphere 0 ml 07/24/24 20:39 Perflutren Lipid Microspheres 1.5 Ml Vial Diluted To 10 Ml Total Volume IV PUSH 07/27/24 20:39 ONCE PRN adequate visualization Protocol Simvastatin 40 mg 07/25/24 21:00 07/25/24 20:00 Simvastatin 20 Mg Tablet PO 40 mg HS KENNA Administration Radiology Results: ITS Impressions Chest X-Ray 07/24/24 18:42 IMPRESSION: No focal infiltrate or effusion. Labs Labs: Laboratory Results - last 24 hr 07/26/24 05:22 WBC 6.6 RBC 3.81 L Hgb 11.5 L Hct 35.8 L MCV 94.0 MCH 30.2 MCHC 32.1 RDW 13.2 Plt Count 224 MPV 11.2 H Immature Gran % (Auto) 0.3 Neut % (Auto) 56.2 Lymph % (Auto) 27.4 [place] % (Auto) 11.7 H Eos % (Auto) 3.3 Baso % (Auto) 1.1 Lymph # (Auto) 1.80 [place] # (Auto) 0.8 H Eos # (Auto) 0.2 Baso # (Auto) 0.1 Abs Immat Gran (auto) 0.02 Absolute Neuts (auto) 3.7 Absolute Nucleated RBC 0.000 Nucleated RBC % 0.0 Sodium 138 Potassium 4.3 Chloride 108 H Carbon Dioxide 25 Anion Gap 5 BUN 30 H Creatinine 1.60 H Estim Creat Clear Calc 35 Estimated GFR 42 L Glucose 116 H Calcium 9.0 Iron 63 TIBC 275 % Saturation 23 Total Bilirubin 0.5 AST 24 ALT 15 Alkaline Phosphatase 93 Total Protein 6.0 L Albumin 3.7
[2024-07-26 14:00] VITALS: BP 125/64; PULSE 75; RESP 18; TEMP 36.6; O2SAT 97
--- NOTE | 2024-07-26 16:36 | PC.NURSE ---
Patient continues to refuse property assessment monitor provider aware.
[2024-07-26] MEDS: DONEPEZIL HCL 10 MG TABLET PO (21:26)
[2024-07-26] MEDS: FLUoxetine HCL 20 MG CAPSULE PO (21:26)
[2024-07-26] MEDS: SIMVASTATIN 20 MG TABLET 40 MG PO (21:26)
[2024-07-26 21:36] VITALS: BP 149/67; PULSE 61; RESP 18; TEMP 36.5; O2SAT 96
[2024-07-27 05:55] VITALS: BP 138/58; PULSE 66; RESP 18; TEMP 36.6; O2SAT 97
[2024-07-27 06:29] LABS: Basophils Absolute Auto 0.1 K/mm3 (0.0-0.1); Basophils Percent Auto 1.2 % (0.2-1.2); Eosinophils Absolute Auto 0.2 K/mm3 (0-0.3); Eosinophils Percent Auto 3.9 % (0-4.4); Hematocrit 33.8 % (42.0-52.0); Hemoglobin 10.8 g/dL (14.0-18.0); Immature Granulocyte Absolute 0.02 K/mm3 (0.00-0.031); Immature Granulocyte Percent A 0.4 % (0-0.5); Lymphocytes Absolute Auto 2.15 K/mm3 (0.9-3.2); Mean Corpuscular Volume 93.9 fl (80-100); Monocytes Absolute Auto 0.7 K/mm3 (0.1-0.6); Monocytes Percent Auto 12.7 % (2.6-8.5); Neutrophils Absolute Auto 2.5 K/mm3 (1.3-6.7); Neutrophils Percent Auto 43.8 % (45.5-73.1); Platelet Count Result 209 k/mm3 (150-375); Red Cell Distribution Width 13.3 % (11.5-14.5); White Blood Count 5.7 K/mm3 (4.5-10.0)
[2024-07-27 06:40] LABS: Alanine Aminotransferase 13 U/L (6-50); Albumin Level 3.4 g/dL (3.5-5.1); Alkaline Phosphatase 83 U/L (38-126); Anion Gap 3 mmol/L (4-12); Aspartate Amino Transferase 20 U/L (17-59); Bilirubin,Total 0.6 mg/dL (0.2-1.3); Blood Urea Nitrogen 26 mg/dL (9-20); Calcium 8.8 mg/dL (8.4-10.2); Carbon Dioxide 24 mmol/L (22-30); Chloride 110 mmol/L (98-107); Estimated CRCL calculation 37 ml/min; Estimated Glomerular Filt Rate 44; Glucose 101 mg/dL (65-110); Potassium 4.3 mmol/L (3.4-5.0); Sodium 137 mmol/L (137-145)
--- NOTE | 2024-07-27 07:30 | PM.IMPN ---
Progress Note: A&P Assessment and Plan (1) Syncope: Qualifiers: Syncope type: unspecified Qualified Code(s): R55 - Syncope and collapse Code(s): R55 - Syncope and collapse Status: Acute Assessment and Plan: Likely secondary to dehydration and hypotension Recent hospitalization for dehydration and hypotension on 07/11 which resolved with IVF - EKG sinus bradycardia - Troponin negative x1 - Lactic acid 1.0 - BNP 1080 - Blood pressures have been elevated to the 150s systolic since holding lisinopril and decreasing coreg dosing to 12.5 daily. Increased coreg back to 25 mg daily. Continue holding lisinopril 20 mg daily. - Echo LVEF 45-50% with grade I diastolic dysfunction - Tele monitoring, patient refusing tele monitor - Monitor (2) Hypotension: Qualifiers: Hypotension type: idiopathic hypotension Qualified Code(s): I95.0 - Idiopathic hypotension Code(s): I95.9 - Hypotension, unspecified Status: Acute Assessment and Plan: Per chart review, patient slumped over at dinner table with a BP of 80/59, sinus isabel 50s. - Troponin negative x1 - Lactic acid 1.0 - BNP 1080 - Blood pressures have been elevated to the 150s systolic since holding lisinopril and decreasing coreg dosing to 12.5 daily. Increased coreg back to 25 mg daily. Continue holding lisinopril 20 mg daily. - Monitor (3) GI bleed: Qualifiers: GI bleed type/associated pathology: unspecified gastrointestinal hemorrhage type Qualified Code(s): K92.2 - Gastrointestinal hemorrhage, unspecified Code(s): K92.2 - Gastrointestinal hemorrhage, unspecified Status: Acute Assessment and Plan: Per chart review quaiac positive stool in the ED. No BM since admission and nurse states that there was no mention of hematochezia or melena prior to admission. 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 Patient does not appear to have been on aspirin or anticoagulation before admission. No signs of active GI bleeding at this time. - Monitor serum electrolytes, CBC, hemoglobin/hematocrit q.8 hours. If hemoglobin drops below 7 transfuse packed red blood cells - Monitor for bloody bowel movements,chest pain,SOB or dizziness/lightheadedness - Pantoprazole BID - DVT Px: SCDs, avoid anti-coagulations - GI consulted Will check anemia workup but etiology is likely multifactorial No indication for emergent endoscopic evaluation at this time unless active GI bleeding noted or patient has unstable H&H If anemia does not improve may consider colonoscopy +/- EGD as outpatient once he is more hemodynamically stable (4) Heart failure with reduced ejection fraction: Code(s): I50.20 - Unspecified systolic (congestive) heart failure Status: Acute Assessment and Plan: Echo: LVEF 45-50% with grade I diastolic dysfunction Cardiology consulted as patient will require follow up (5) Anemia: Qualifiers: Anemia type: unspecified type Qualified Code(s): D64.9 - Anemia, unspecified Code(s): D64.9 - Anemia, unspecified Status: Acute Assessment and Plan: H/H 9.8/29.6 on admission, previous admission range hgb was 10-11. Per chart review quaiac positive stool in the ED. No BM since admission and nurse states that there was no mention of hematochezia or melena prior to admission. 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 Patient does not appear to have been on aspirin or anticoagulation before admission. No signs of active GI bleeding at this time. - Not on ASA or anticoagulants - Iron panel WNL - Folate and B12 WNL - GI consulted Will check anemia workup but etiology is likely multifactorial No indication for emergent endoscopic evaluation at this time unless active GI bleeding noted or patient has unstable H&H If anemia does not improve may consider colonoscopy +/- EGD as outpatient once he is more hemodynamically stable (6) Coronary artery disease: Code(s): I25.10 - Atherosclerotic heart disease of [place] coronary artery without angina pectoris Status: Acute Assessment and Plan: - 4 vessel CABG - coreg 12.5 mg daily, statin (7) Dementia: Code(s): F03.90 - Unspecified dementia, unspecified severity, without behavioral disturbance, psychotic disturbance, mood disturbance, and anxiety Status: Acute Assessment and Plan: chronic contine chronic Aricept, memantine Subjective Date/time seen: 07/27/24 07:30 Interval history: 84-year-old male with past medical history of Alzheimer's, CAD, 4 vessel CABG, HLD, and HTN presents to the hospital from local [facility] for a syncopal episode. Review of Systems Review of Systems: All systems reviewed & are unremarkable except as noted in HPI and below Exam Narrative: AF HR General: male in no acute respiratory distress who is nontoxic appearing, sitting up in bed HEENT: Normocephalic. Atraumatic. Extraocular movement intact. Sclera clear and anicteric. No facial asymmetry. Chest: Lungs are clear to auscultation bilaterally. No wheezes or crackles. CV: Heart was regular rate and rhythm. S1/S2. No murmurs, gallops, or rubs. Abd: Abdomen was soft. Nontender. Nondistended. Positive bowel sounds. No organomegaly or masses. Neuro: Patient is alert. Speech is clear. Objective Data Vital Signs Vital Signs: Vital Signs - 24 hr 07/26/24 08:14 07/26/24 08:15 07/26/24 08:16 Temperature Pulse Rate 70 70 Respiratory Rate Blood Pressure 138/69 Pulse Oximetry 98 98 Oxygen Delivery Room Air 07/26/24 14:00 07/26/24 20:00 07/26/24 21:36 Temperature 97.9 F 97.7 F Pulse Rate 75 61 Respiratory Rate 18 18 Blood Pressure 125/64 149/67 H Pulse Oximetry 97 96 Oxygen Delivery Room Air 07/27/24 05:55 Temperature 97.8 F Pulse Rate 66 Respiratory Rate 18 Blood Pressure 138/58 L Pulse Oximetry 97 Oxygen Delivery Intake/Output Intake/Output: Intake & Output 07/24/24 07/25/24 07/26/24 07/27/24 23:59 23:59 23:59 23:59 Intake Total 1000 1120 920 150 Balance 1000 1120 920 150 Meds/Results Medications: Active Medications Generic Name Dose Route Start Last Admin Trade Name Freq PRN Reason Stop Dose Admin Acetaminophen 650 mg 07/24/24 20:36 Acetaminophen 325 Mg Tablet PO Q4H PRN Mild Pain (1-3) or Fever Carvedilol 25 mg 07/26/24 09:00 07/26/24 08:16 Carvedilol 25 Mg Tablet PO 25 mg DAILY KENNA Administration Donepezil HCl 10 mg 07/25/24 21:00 07/26/24 21:26 Donepezil Hcl 10 Mg Tablet PO 10 mg HS KENNA Administration Fluoxetine HCl 20 mg 07/25/24 21:00 07/26/24 21:26 Fluoxetine Hcl 20 Mg Capsule PO 20 mg HS KENNA Administration Memantine 10 mg 07/25/24 17:00 07/26/24 17:12 Memantine 10 Mg Tablet PO 10 mg BID KENNA Administration Ondansetron HCl 4 mg 07/24/24 20:36 Ondansetron Inj 4 Mg/2 Ml Vial IV PUSH Q4H PRN Nausea Perflutren Lipid Microsphere 0 ml 07/24/24 20:39 Perflutren Lipid Microspheres 1.5 Ml Vial Diluted To 10 Ml Total Volume IV PUSH 07/27/24 20:39 ONCE PRN adequate visualization Protocol Simvastatin 40 mg 07/25/24 21:00 07/26/24 21:26 Simvastatin 20 Mg Tablet PO 40 mg HS KENNA Administration Radiology Results: ITS Impressions Chest X-Ray 07/24/24 18:42 IMPRESSION: No focal infiltrate or effusion. Labs Labs: Laboratory Results - last 24 hr 07/26/24 07/27/24 05:22 05:22 WBC 6.6 5.7 RBC 3.81 L 3.60 L Hgb 11.5 L 10.8 L Hct 35.8 L 33.8 L MCV 94.0 93.9 MCH 30.2 30.0 MCHC 32.1 32.0 RDW 13.2 13.3 Plt Count 224 209 MPV 11.2 H 11.0 H Immature Gran % (Auto) 0.3 0.4 Neut % (Auto) 56.2 43.8 L Lymph % (Auto) 27.4 38.0 [place] % (Auto) 11.7 H 12.7 H Eos % (Auto) 3.3 3.9 Baso % (Auto) 1.1 1.2 Lymph # (Auto) 1.80 2.15 [place] # (Auto) 0.8 H 0.7 H Eos # (Auto) 0.2 0.2 Baso # (Auto) 0.1 0.1 Abs Immat Gran (auto) 0.02 0.02 Absolute Neuts (auto) 3.7 2.5 Absolute Nucleated RBC 0.000 0.000 Nucleated RBC % 0.0 0.0 Sodium 138 137 Potassium 4.3 4.3 Chloride 108 H 110 H Carbon Dioxide 25 24 Anion Gap 5 3 L BUN 30 H 26 H Creatinine 1.60 H 1.52 H Estim Creat Clear Calc 35 37 Estimated GFR 42 L 44 L Glucose 116 H 101 Calcium 9.0 8.8 Iron 63 TIBC 275 % Saturation 23 Total Bilirubin 0.5 0.6 AST 24 20 ALT 15 13 Alkaline Phosphatase 93 83 Total Protein 6.0 L 6.0 L Albumin 3.7 3.4 L Quality VTE Prophylaxis VTE prophylaxis: mechanical ordered
--- NOTE | 2024-07-27 08:58 | PM.CNCAR ---
Assessment and Plan Assessment and plan (1) Coronary artery disease: Code(s): I25.10 - Atherosclerotic heart disease of [place] coronary artery without angina pectoris Status: Acute Assessment and Plan: History of coronary artery disease with 4 vessel bypass. He denies any anginal symptoms. Continue medical management with statin. Unsure why he is not on aspirin, but unless there is a contraindication he should also be on aspirin. (2) Heart failure with reduced ejection fraction: Code(s): I50.20 - Unspecified systolic (congestive) heart failure Status: Acute Assessment and Plan: Has mildly reduced left ventricular systolic function. He does not have any clinical signs or symptoms of congestive heart failure. Continue with Coreg. He does not require any further cardiac evaluation or testing. Will arrange for outpatient follow-up. He can be discharged from the hospital for cardiac standpoint. Cardiology will sign off. Please call with any questions. Plan Plan and recommendations discussed with hospitalist. History of Present Illness History of Present Illness Consult date/time: 07/27/24 08:58 Requesting physician: Cassia Singh PA-C Consult reason: Other (EF 45-50%) Reason For Visit: Syncope, GI bleed Narrative: Tung Rodriguez is an 84 year old male with coronary artery disease, 4 vessel coronary artery bypass, hyperlipidemia, hypertension, and dementia. [place] [facility] [place] because of an episode of syncope. Cardiology is consulted because an echocardiogram was performed that showed mildly reduced left ventricular systolic function. He denies any chest pain, shortness of breath, swelling, orthopnea, palpitations. He does not recall his syncopal episode, therefore cannot provide any details regarding this event. At the time my evaluation, he is resting comfortably in bed does not have any active complaints. Review of Systems Review of Systems: ROS unobtainable: Yes unobtainable due to mental status PMFSH Past Medical History Medical History Coronary artery disease Depression Vitamin D deficiency Dementia Hyperlipidemia Hypertension Surgical History Surgical History History of bilateral knee arthroplasty History of four vessel coronary artery bypass graft Family History Family History Other Family history unknown Social History Social History Social History: Healthcare power of corporate associate attorney: Teressa Espinal, daughter. Code status: Full code. Smoking status: Unknown if ever smoked Alcohol intake: unknown Substance use: unknown Do You Feel Safe in your Home?: Yes Lack of Transportation: No Lack of Food: Never True Current Housing: I Have Housing Concerned About Future Housing: No Difficulty Paying Gas/Electric Bills: No Difficulty Paying for Meds: No Currently Unemployed: No Education: High School Diploma/GED Difficulty w/ Childcare or Family Care: No Additional living arrangements comments: Assisted living at [facility]. 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 Spiritual care concerns: No Meds Home Medications and Allergies Home Medications ?Medication ?Instructions ?Recorded ?Confirmed ?Type carvedilol 12.5 mg tablet 12.5 mg PO DAILY 07/11/24 07/24/24 History carvedilol 25 mg tablet 25 mg PO QPM 07/11/24 07/24/24 History cholecalciferol (vitamin D3) 25 25 mcg PO DAILY 07/11/24 07/24/24 History mcg (1,000 unit) tablet donepezil 10 mg tablet (Aricept) 10 mg PO HS 07/11/24 07/24/24 History fluoxetine 20 mg tablet 20 mg PO HS 07/11/24 07/24/24 History lisinopril 20 mg tablet 20 mg PO DAILY 07/11/24 07/24/24 History memantine 10 mg tablet 10 mg PO BID 07/11/24 07/24/24 History simvastatin 40 mg tablet 40 mg PO HS 07/11/24 07/24/24 History vitamin E 670 mg (1,000 unit) 670 mg PO DAILY 07/11/24 07/24/24 History capsule Allergies Allergy/AdvReac Type Severity Reaction Status Date / Time mold Allergy Unknown Verified 07/12/24 00:07 Penicillins Allergy Anaphylaxis Verified 07/12/24 00:07 pollen extracts Allergy Unknown Verified 07/12/24 00:07 Sulfa (Sulfonamide Allergy Unknown Verified 07/12/24 00:07 Antibiotics) Vital Signs Vital Signs - 24 hr 07/26/24 14:00 07/26/24 20:00 07/26/24 21:36 Temperature 36.6 C 36.5 C Pulse Rate 75 61 Respiratory Rate 18 18 Blood Pressure 125/64 149/67 H Pulse Oximetry 97 96 Oxygen Delivery Room Air 07/27/24 05:55 Temperature 36.6 C Pulse Rate 66 Respiratory Rate 18 Blood Pressure 138/58 L Pulse Oximetry 97 Oxygen Delivery Exam Const: General: comfortable, no acute distress, alert and awake Other: Oriented to person, place HENMT: Head: normal to inspection Eyes: General: appearance normal, both eyes and all related structures Pupils: Equal, round and reactive pupils present Neck: Neck: normal visual inspection, supple and no JVD Carotids: normal carotid upstroke Resp: Effort & Inspection: normal respiratory effort Auscultation: clear to auscultation bilaterally Cardio: Rate: regular rate Rhythm: regular rhythm Heart sounds: S1 normal heart sound present, S2 normal heart sound present and no murmurs GI: Auscultation: normal bowel sounds Skin: General skin exam: normal color Neuro: General: patient oriented x3 Cranial nerves: Yes Equal, round and reactive pupils present Extrem: General: normal to inspection Other: No edema Psych: Appearance: grossly normal Mental Status: mental status grossly normal Results Labs and Meds 07/27/24 05:22 07/27/24 05:22 Lab results: Cardiac Enzymes 07/26/24 07/27/24 Range/Units 05:22 05:22 AST 24 20 (17-59) U/L CBC 07/27/24 Range/Units 05:22 WBC 5.7 (4.5-10.0) K/mm3 RBC 3.60 L (4.6-6.20) M/mm3 Hgb 10.8 L (14.0-18.0) g/dL Hct 33.8 L (42.0-52.0) % Plt Count 209 (150-375) k/mm3 Lymph # (Auto) 2.15 (0.9-3.2) K/mm3 Garza # (Auto) 0.7 H (0.1-0.6) K/mm3 Eos # (Auto) 0.2 (0-0.3) K/mm3 Baso # (Auto) 0.1 (0.0-0.1) K/mm3 Comprehensive Metabolic Panel 01/08/25 01/09/25 Range/Units 05:22 05:22 Sodium 138 137 (137-145) mmol/L Potassium 4.3 4.3 (3.4-5.0) mmol/L Chloride 108 H 110 H (98-107) mmol/L Carbon Dioxide 25 24 (22-30) mmol/L BUN 30 H 26 H (9-20) mg/dL Creatinine 1.60 H 1.52 H (0.7-1.3) mg/dL Glucose 116 H 101 (65-110) mg/dL Calcium 9.0 8.8 (8.4-10.2) mg/dL AST 24 20 (17-59) U/L ALT 15 13 (6-50) U/L Alkaline Phosphatase 93 83 (38-126) U/L Total Protein 6.0 L 6.0 L (6.3-8.2) g/dL Albumin 3.7 3.4 L (3.5-5.1) g/dL Intake and Output 07/26/24 07/27/24 07/27/24 23:59 07:59 15:59 Intake Total 240 150 Balance 240 150 Intake: Oral 240 150 Other: # Unmeasured Voids 5 4
[2024-07-27 09:21] VITALS: PULSE 66
[2024-07-27] MEDS: MEMANTINE 10 MG TABLET PO (09:21)
[2024-07-27] MEDS: carvediloL 25 MG TABLET PO (09:21)
[2024-07-27 14:00] VITALS: BP 111/46; PULSE 64; RESP 18; TEMP 36.3; O2SAT 97
--- NOTE | 2024-07-27 14:37 | P.DS_ITS ---
DS: Admitting Diagnosis Discharge Date 07/27/2024 Admitting Diagnosis Syncope hypotension GI bleed heart failure with reduced ejection fraction anemia coronary artery disease dementia DS: Discharge Diagnosis Discharge Diagnosis (1) Syncope: Qualifiers: Syncope type: unspecified Qualified Code(s): R55 - Syncope and collapse Code(s): R55 - Syncope and collapse Status: Acute (2) Hypotension: Qualifiers: Hypotension type: idiopathic hypotension Qualified Code(s): I95.0 - Idiopathic hypotension Code(s): I95.9 - Hypotension, unspecified Status: Acute (3) GI bleed: Qualifiers: GI bleed type/associated pathology: unspecified gastrointestinal hemorrhage type Qualified Code(s): K92.2 - Gastrointestinal hemorrhage, unspecified Code(s): K92.2 - Gastrointestinal hemorrhage, unspecified Status: Acute (4) Heart failure with reduced ejection fraction: Code(s): I50.20 - Unspecified systolic (congestive) heart failure Status: Acute (5) Anemia: Qualifiers: Anemia type: unspecified type Qualified Code(s): D64.9 - Anemia, unspecified Code(s): D64.9 - Anemia, unspecified Status: Acute (6) Coronary artery disease: Code(s): I25.10 - Atherosclerotic heart disease of [place] coronary artery without angina pectoris Status: Acute (7) Dementia: Code(s): F03.90 - Unspecified dementia, unspecified severity, without behavioral disturbance, psychotic disturbance, mood disturbance, and anxiety Status: Acute DS: Summary Hospital Course Reason for hospitalization: Syncope hypotension GI bleed heart failure with reduced ejection fraction anemia coronary artery disease dementia Hospital Course: 84-year-old male with past medical history of Alzheimer's, CAD, 4 vessel CABG, HLD, and HTN presents to the hospital from local [facility] for a syncopal episode. Syncope likely secondary to dehydration and hypotension. Per chart review, patient slumped over at dinner table with a BP of 80/59, sinus isabel 50s. Troponin was negative. EKG showed sinus bradycardia. On admission patients blood pressure medications were held, however he was becoming hypertensive and patients carvedilol 25 mg daily was resumed. His lisinopril remains on hold until further follow up with his PCP. Patients blood pressure remained stable on this regimen. An echo was obtained and showed an LVEF of 45-50% with grade I diastolic dysfunction. Cardiology was consulted. Patient did not have any clinical signs or symptoms of congestive heart failure. He is to remain on his carvedilol and follow up with cardiology in the outpatient setting. In the ED a stool quaiac was positive. GI was consulted at that time. Per GI there was no indication for emergent endoscopic evaluation at this time as patient is not actively having a GI bleeding and H&H remained stable. At time of discharge patient had no complaints denying chest pain, shortness of breath, palpitations, nausea/vomiting, abdominal pain. patient discharged back to [facility] in a stable condition. he is to follow up with his primary care provider in 1 week. Status at Discharge Functional status at discharge: uses cane/walker Time Spent with Patient Time attestation: Total time spent providing and/or coordinating discharge services: Time spent: Greater than 30 minutes Exam 2 Narrative: AF HR 64 RR 18 SPO2 97 BP 111/46 General: male in no acute respiratory distress who is nontoxic appearing, sitting up in bed HEENT: Normocephalic. Atraumatic. Extraocular movement intact. Sclera clear and anicteric. No facial asymmetry. Chest: Lungs are clear to auscultation bilaterally. No wheezes or crackles. CV: Heart was regular rate and rhythm. S1/S2. No murmurs, gallops, or rubs. Abd: Abdomen was soft. Nontender. Nondistended. Positive bowel sounds. No organomegaly or masses. Neuro: Patient is alert. Speech is clear. DS: Data Data Completed and Pending Completed studies during hospitalization: chest xr Labs on day of discharge: Labs from last 24 hours 07/27/24 05:22 WBC 5.7 RBC 3.60 L Hgb 10.8 L Hct 33.8 L MCV 93.9 MCH 30.0 MCHC 32.0 RDW 13.3 Plt Count 209 MPV 11.0 H Immature Gran % (Auto) 0.4 Neut % (Auto) 43.8 L Lymph % (Auto) 38.0 Owen % (Auto) 12.7 H Eos % (Auto) 3.9 Baso % (Auto) 1.2 Lymph # (Auto) 2.15 Owen # (Auto) 0.7 H Eos # (Auto) 0.2 Baso # (Auto) 0.1 Abs Immat Gran (auto) 0.02 Absolute Neuts (auto) 2.5 Absolute Nucleated RBC 0.000 Nucleated RBC % 0.0 Sodium 137 Potassium 4.3 Chloride 110 H Carbon Dioxide 24 Anion Gap 3 L BUN 26 H Creatinine 1.52 H Estim Creat Clear Calc 37 Estimated GFR 44 L Glucose 101 Calcium 8.8 Total Bilirubin 0.6 AST 20 ALT 13 Alkaline Phosphatase 83 Total Protein 6.0 L Albumin 3.4 L Discharge Plan Discharge Attending physician on discharge: Nena Garcia Consulting providers: Jimmy Hoffman; Angel Ho Discharging Clinician: Cassia Singh Anticipated Discharge Date/Time: 07/27/24 13:59 Patient Disposition: [facility] Senior Living/Asst Living Activity: as tolerated Diet: as tolerated and heart healthy Discharge Instructions: Discharge disposition: Patient admitted for syncopal event likely secondary to dehydration and low blood pressures Take medications as prescribed Continue carvedilol 25 mg daily Hold lisinopril 20 mg daily until follow up with PCP in regards to resuming this medications Monitor blood pressures Take caution while standing, rising, or moving Change positions slowly taking a break between each position change If you standing feel dizzy sat back down and take a break Patient diagnosed with heart failure as he had mildly reduced ejection fraction on his echo Evaluated by cardiology Continue medications as prescribed Follow up with Patient had a positive quaiac concerning for GI bleed GI evaluated patient and has no overt manifestation of GI bleeding or symptoms therefore no intervention is required at this time Continue to monitor patients stool for concern of bleeding Encouraged to continue with yearly vaccinations Return to the emergency department if he developed sudden shortness of breath, chest pain, nausea, vomiting, upset stomach or intractable diarrhea Return to the emergency department if you develop fever greater than 101.5 Follow-up with the primary care physician within 1-2 weeks Thank you for [facility] for your healthcare needs Patient Instructions: Antibiotic Form, Dehydration (DC), Syncope (DC), Hypotension (DC) Patient Language: Swedish Stand Alone Forms: General Discharge Information Follow-up/Referrals: Jimmy Hoffman MD [Physician] - 1 Week Angel Ho MD [Physician] - 2 Weeks Discharge Medications: Continued donepezil [Aricept] 10 mg tablet 10 mg PO HS fluoxetine 20 mg tablet 20 mg PO HS cholecalciferol (vitamin D3) 25 mcg (1,000 unit) tablet 25 mcg PO DAILY simvastatin 40 mg tablet 40 mg PO HS memantine 10 mg tablet 10 mg PO BID vitamin E 670 mg (1,000 unit) capsule 670 mg PO DAILY Changed carvedilol 25 mg tablet 25 mg PO DAILY Qty: 30 0RF Rx Instructions: must administer with a meal/food Held lisinopril 20 mg tablet 20 mg PO DAILY Hold Instructions: Resume on 09/15/24. Hold until follow up with PCP Discontinued carvedilol 12.5 mg tablet 12.5 mg PO DAILY Rx Instructions: must administer with a meal/food Date of admission: 07/25/24 15:50 Primary Care Provider: PHYSICIAN,ASSISTANT MANAGER PT Admitting Provider: Melissa Meyers Attending physician on admission: Cassia Singh Condition: Stable Hospitalist MIPS Heart Failure (Exclusion) Patient has history of Heart Transplant or Left Ventricular Assistive Device?: No IF YES, STOP HERE Heart Failure (Qualifier) Patient has current or prior documentation of LVEF less than or equal to 40%, or mod/servere depressed LVSF?: No IF NO, STOP HERE
[2024-07-28 14:37] LABS: Erythropoietin (EPO) 5.3 mIU/mL (2.6-18.5)
--- OUTSIDE RECORDS SUMMARY | 2024-07-31 05:43 | XMS_ITS | Continuity of Care Document ---
Author Organization [facility] Address [id number] [place] [address] Phone Care Team Providers Care Food Service Coordinator Name Role Phone Lily Peng Unavailable Unavailable Allergies, Adverse Reactions, Alerts Substance Reaction Status Criticality Penicillins Anaphylaxis Active No Information Medications Medication Instructions Dosage Effective Dates (start - stop) Status Comments Namenda 10 mg tablet take 1 tablet by or al route 2 times every day - Active aspirin 81 mg chewable tablet chew 1 tablet by oral route every day 81 MG - Active lisinopril 5 mg tablet take 1 tablet by oral route every day 5 MG - Active sertraline 100 mg tablet take 1.5 tablet by oral route every day 150 MG - Active metformin 500 mg tablet take 1 tablet by oral route 2 times every day with morning and evening meals 500 MG - Active atorvastatin 20 mg tablet take 1 tablet by oral route every day 20 MG - Active melatonin 5 mg capsule - Active donepezil 10 mg tablet take 0.5 tablet by oral route every day in the evening 5 MG - Active Vitamin D3 125 mcg (5,000 unit) tablet take 1 tablet by oral route every day for 8 weeks. RTC for adjustments 1 tablet - Active Procedures Procedure Date NO CHARGE COMPLETE CBC W/AUTO DIFF WBC COMPREHEN METABOLIC PANEL LIPID PANEL ASSAY OF PSA TOTAL Vitamin D 25-OH ROUTINE VENIPUNCTURE PSA screening OFFICE/OUTPATIENT VISIT, EST OFFICE/OUTPATIENT VISIT, NEW GLYCOSYLATED HEMOGLOBIN TEST HG A1C LEVEL LT 7.0% Results Test Name Date and Time Measure Units Reference Range Abnormal Flag Status Comments Panel Description: CBC with Differential/Platele t Final WBC Sep-16-2 09:30:05 5.8 x10E3/uL 4.8-10.8 Final RBC Mar-16- 09:30:05 4.93 x10E36/u L 4.10-5.60 Final Hemoglobin Mar-16-2 09:30:05 14.7 g/dL 14.0-18.0 Final Hematocrit Sep-16-2 09:30:05 44.9 % 41.0-53.0 Final MCV Sep-16-2 09:30:05 91 fL 84-103 Final MCH Sep-16-2 09:30:05 29.8 pg 27.0-34.0 Final MCHC Mar-16-2 09:30:05 32.7 g/dL 30.0-35.0 Final RDW Sep-16-2 09:30:05 13.5 11.7-15.0 Final Platelets Sep-16-2 09:30:05 215 x10E3/uL 140-440 Final Neutrophils Sep-16-2 09:30:05 55 % 40-74 Final Lymphs Sep-16-2 09:30:05 29 % 24-44 Final Monocytes Sep-16-2 09:30:05 10.20 % 2.00-10.00 H Final Eos Sep-16-2 09:30:05 5 % 0-7 Final Basos Sep-16-2 09:30:05 1 % 0-3 Final Neutrophils (Absolute) Sep-16-2 09:30:05 3.2 x10E3/uL 1.8-7.8 Final Lymphs (Absolute) Sep-16-2 09:30:05 1.7 x10E3/uL 0.7-4.5 Final Monocytes (Absolute) Sep-16-2 09:30:05 0.59 x10E3/uL 0.10-1.00 Final Eos (Absolute) Sep-16-2 09:30:05 0.3 x10E3/uL 0.0-0.7 Final Baso (Absolute) [facility] 09:30:05 0.0 X10E3/uL 0.0-1.0 Final IG% [facility] 09:30:05 0.20 % 0.00-0.50 Final IG# Mar 09:30:05 0.01 x10?/uL 0.00-0.05 Final Panel Description: Comprehensive Metabolic Panel Final UR/Creatinine Ratio [facility] 09:30:05 20 9-23 Final Chloride [facility] 09:30:05 103 mmol/L 97-108 Final Albumin/Globulin Ratio [facility] 09:30:05 1.5 1.1-2.5 Final Total Bilirubin [facility] 09:30:05 0.5 mg/dL 0.0-1.2 Final Anion Gap [facility] 09:30:05 12 Final Estimated Glomerular Filtration Rate [facility] [place] 09:30:05 >59 mL/min/1 .73 >59 Final Albumin [facility] 09:30:05 4.2 g/dL 3.5-5.5 Final Alkaline Phosphatase [facility] 09:30:05 82 U/L 25-150 Final ALT [facility] 09:30:05 17 U/L 10-45 Final AST [facility] 09:30:05 29 U/L 0-40 Final Glucose [facility] 09:30:05 156 mg/dL 65-95 H Final Calcium [facility] 09:30:05 9.4 mg/dL 8.7-10.2 Final Creatinine [facility] 09:30:05 1.1 mg/dL 0.8-1.3 Final Enzymatic CO2 [facility] [place] 09:30:05 28 mmol/L 20-32 Final Potassium [facility] [place] 09:30:05 4.5 mmol/L 3.5-5.2 Final Sodium [facility] 09:30:05 138 mmol/L 135-145 Final Total Protein [facility] [place] 09:30:05 7.0 g/dL 6.0-8.5 Final UREA NITROGEN [facility] [place] 09:30:05 22 mg/dL 6-24 Final Panel Description: PSA Final PSA Mar- 09:30:05 0.32 ng/mL 0.00-4.00 Final Panel Description: Cholesterol Final Triglycerides Mar- 09:30:05 172 mg/dL <149 H Final HDL, Direct 09:30:05 39 mg/dL 39-61 Final Calculated LDL Mar 09:30:05 87 <99 Final VLDL Mar 09:30:05 34 6-40 Final CHOL/dHDL RATIO 09:30:05 4 Final Cholesterol [facility] [place] 09:30:05 161 mg/dL 100-199 Final Panel Description: Vitamin D 25-OH Final Vitamin D 25-OH Mar 09:30:05 65 ng/ml 30-100 Final Interpretive commentDeficien t: <20 ng/mlInsufficie nt 20-<30 ng/mlPotential Toxicity >100 ng/ml Advance Directives Directive Yes / No Effective Date File Name No Information Encounters Encounter Description Practice Location Reason(s) For Visit Diagnoses Date Provider Providers Copied on Encounter [facility], [id number]- [place], [place], [id number], [place] tel:[phone] [facility] Type 2 diabetes mellitus without complicationsHeart disease, unspecified Sep-1 0 Kim Bautista. [address] [place] [address], [id number] , [place]. [phone] Referring Provider: Lily Alvarez, [address] [place] [address], [id number] . tel:[phone] OFFICE/OUTPA TIENT VISIT, EST [facility], [id number], [place], [id number], [place] tel:[phone] [facility] diabetes (chief complaint) hypertensi on (chief complaint) dementia (chief complaint) Type 2 diabetes mellitus without complication, without long-term current use of insulinHeart diseaseDementia in other diseases classified elsewhere without behavioral disturbance Sep-0 0 Kim Bautista. [address] [place] [address], [id number] , [place]. [phone] Referring Provider: Lily Alvarez [address] [place] [address], [id number] . tel:[phone] OFFICE/OUTPA TIENT VISIT, [facility], [id number] [place], [id number], [place] tel:[phone] [facility] diabetes (chief complaint) hyperlipid emia (chief complaint) Dementia (chief complaint) Type 2 diabetes mellitus without complication, without long-term current use of insulinHeart diseaseHyperlipidemi a, unspecified hyperlipidemia typeAlzheimer's disease of other onset without behavioral disturbanceDementia in other diseases classified elsewhere without behavioral disturbanceScreening PSA (prostate specific antigen)Vitamin D deficiency 0 Kim Bautista. [address] [place] [address], [id number] , [place]. [phone] Referring Provider: Lily Alvarez, [address] [place] [address], [address] . tel:[phone] Family History Family Member Type Diagnosis Age At Onset No Information Payers Payer name Insurance type Covered alliance party ID Tony diezjustyna(zacharyRod [facility] [id number] Social History Type Description Quantity Date Captured Comments Alcohol Use Details Unknown Caffeine Use Details Unknown Tobacco Use Status No Information Smoking Status No Information Sex Male Chief Complaint And Reason For Visit No Information Reason For Referral Reason For Referral No Information Plan Of Treatment Date Type Action Status Future Order: Lab Order CBC With Differential/Platelet ([id number]), Sent on: Sent Future Order: Lab Order CMP ([id number]), Sen t on: Sent Future Order: Lab Order Lipid Pr ofile ([id number]), Sent on: Sent Future Order: Lab Order PSA ([id number]), Sen t on: Sent Future Order: Lab Order Vitamin D 25-OH ([id number]), Sent on: Sent History Of Present Illness Encounter Date Complaint History Of Prese nt Illness hypertension It is currently stable. Risk factors include male gender. Pertinent negatives include chest pain, dyspnea, hematuria and irregular heartbeat/palpitations. Additional information: takes meds as directed dementia Severity level i s moderate. Additional information: sees Neurology at [facility] every 3 months for his dementia. thinks he is mid stage. diabetes The diabetes akiko litus began in 2018. The problem is stable. He Has been managed with oral medications. Pertinent negatives include blurred vision, dyspnea, foot ulcers and frequent infections. Additional information: bs was 150 this am and usually a little lower than that.. Dementia Onset was and it was gradual. Severity level is moderate. Pertinent negatives include dizziness, fever and headache. Additional information: Was diagnosed with alzheimers in 2011- takes donepezil. Sees Neurologist in [place]. Was put on sertraline for depression/mood/agitation. diabetes The diabetes akiko litus began in 2018. The problem is stable. Patient is compliant with using medication. Pertinent negatives include blurred vision, burning of extremities, chest pain, dysesthesias, dyspnea, foot ulcers and frequent infections. Additional information: last a1c was in July 2019 at 8.0 and was put on metformin at that time. bs was 142 this am.. hyperlipidemia Pertinent negati ves include chest pain, dysesthesias, dyspnea, foot ulcer and frequent infections. Additional information: last labs were in july 2019- takes medication for this. Functional Status Date Functional Assessmen t No Information Instructions Date Instruction Additional Infor hilda follow up with neuro logy- may look into in home care so can go to [facility] without worry Related to Dementia in other diseases classified elsewhere without behavioral disturbance continue current med s, will return fasting for labs Related to Heart disease a1c was 6.8 when shanna cked in decembercontinue to monitor bs dailyfollow up in 3 months with a1c Related to Type 2 diabetes mellitus without complication, without long-term current use of insulin will return for labs Related to Screening PSA (prostate specific antigen) will check a1c today 6.8- goal is less than 7.0work on low glycemic dietfollow up in 3 months Related to Type 2 diabetes mellitus without complication, without long-term current use of insulin #6 Related to Vitam in D deficiency follow up with cardi ology at [facility] yearly Related to Heart disease follow up with neurology at [facility] Related to Alzheimer's disease of other onset without behavioral disturbance see #3 Related to Demen tia in other diseases classified elsewhere without behavioral disturbance will return for fast ing labs, we will contact with hamz[facility] g[facility] for records from prior pcp chi Related to Hyperlipidemia, unspecified hyperlipidemia type Assessments Type Assessment Date No Information Patient Care Teams Name Effective Dates (start - stop) Status Members No Information
== END 2024-07-27 15:25 | DRG 315 ==
LOC: ANHED 20:40 → ANH2MED 21:26
PROVIDERS: Internal Medicine Gastroenterology; Nurse Practitioner Family; Student in an Organized Health Care Education/Training Program; Admitting Provider Internal Medicine; Emergency Provider Physician Assistant; Visit Provider Student in an Organized Health Care Education/Training Program
DX: I95.9 Hypotension, unspecified (principal); K92.2 Gastrointestinal hemorrhage, unspecified; R55 Syncope and collapse; E86.0 Dehydration; D64.9 Anemia, unspecified; I25.10 Atherosclerotic heart disease of native coronary artery without angina pectoris; E78.5 Hyperlipidemia, unspecified; G30.9 Alzheimer's disease, unspecified; I11.0 Hypertensive heart disease with heart failure; I50.9 Heart failure, unspecified; F02.80 Dementia in other diseases classified elsewhere, unspecified severity, without behavioral disturbance, psychotic disturbance, mood disturbance, and anxiety; F32.A Depression, unspecified; Z95.1 Presence of aortocoronary bypass graft; Z96.653 Presence of artificial knee joint, bilateral
CPT/HCPCS: 36415; 71045; 80053; 81001; 82607; 82668; 82728; 82746; 83540; 83550; 83605; 83735; 83880; 84100; 84484; 85025; 85046; 93005; 93306; 96361; 96374; 96375; 99284; A9270; G0378; J7030